=== PATIENT | female | born 1970 | race Caucasian/White ===

== ENCOUNTER 2016-10-26 16:08 | Emergency (ER) | payer MEDICAID ==
--- NOTE | 2016-10-26 17:13 | CPEKG ---
Heart Rate: 98 RR Interval: 612 P-R Interval: 168 QRSD Interval: 82 QT Interval: 352 QTC Interval: 450 P Laurens: 61 QRS Laurens: 47 T Wave Laurens: 28 EKG Severity - NORMAL ECG - EKG Impression: SINUS RHYTHM Electronically Signed By: Lakisha Rosales 26-Oct-2016 22:46:27
[2016-10-26] MEDS ORDERED: ASPIRIN 81 MG CHEWABLE TAB PO ONE (17:34)
--- NOTE | 2016-10-26 17:34 | EDPHY ---
H & P Time Seen by Provider: 10/26/16 16:57 HPI/ROS: CHIEF COMPLAINT: Chest pain HISTORY OF PRESENT ILLNESS: Patient is a 45-year-old female with a history of DVT and PE who presents emergency department with right anterior chest pain. She has mild shortness of breath. No cough. No fevers or chills. It is not worse with movement. It is not positional. She she has no leg pain or swelling. No recent travel. She is not taking hormone replacement therapy. She does not smoke. No nausea or vomiting. REVIEW OF SYSTEMS: My complete review of systems is negative except as mentioned in the HPI. Past Medical/Surgical History: Includes PE and DVT. The patient was a previous drug abuser. Social history: The patient does not smoke Smoking Status: Never smoked Physical Exam: Vitals noted GENERAL: Well-appearing, in no acute distress, alert. HEENT: Eyes normal to inspection, normal pharynx, no signs of dehydration. NECK: No thyromegaly, no lymphadenopathy, supple. RESPIRATORY: Clear to auscultation bilaterally, no rales, rhonchi or wheezing. Chest wall: No chest wall tenderness palpation CVS: Regular rate and rhythm, no rubs, murmurs, or gallops. ABDOMEN: Soft, nontender, nondistended, no organomegaly. BACK: Normal to inspection, no CVA tenderness. SKIN: Normal color, no rash, warm, dry. No pallor. EXTREMITIES: No pedal edema, no calf tenderness, no Homans sign or cords, no joint swelling. NEURO/PSYCH: Alert and oriented x3, normal mood and affect, normal motor sensory exam. Constitutional: Initial Vital Signs Temperature (C) 36.9 C 10/26/16 16:21 Heart Rate 107 H 10/26/16 16:21 Respiratory Rate 16 10/26/16 16:21 Blood Pressure 132/94 H 10/26/16 16:21 O2 Sat (%) 97 10/26/16 16:21 O2 Delivery Mode Room Air Allergies/Adverse Reactions: baclofen [Baclofen] Allergy (Severe, Verified 05/18/16 19:44) Other-Enter Comments ondansetron HCl [From Zofran (as hydrochloride)] Allergy (Severe, Verified 05/18 19:44) Edema of Extremities propofol [From Diprivan] Allergy (Severe, Verified 05/18/16 19:44) hives, itching, couldn't breath fluconazole [From Diflucan] Allergy (Intermediate, Verified 05/18/16 19:44) Other-Enter Comments prochlorperazine edisylate [From Compazine] Allergy (Intermediate, Verified 10/27 19:44) hives, itching prochlorperazine maleate [From Compazine] Allergy (Intermediate, Verified 19:44) hives, itching corn Allergy (Mild, Verified 05/18/16 19:44) headache and migraine Milk Containing Products Allergy (Unknown, Verified 05/18/16 19:44) soy Allergy (Unknown, Verified 05/18/16 19:44) wheat Allergy (Unknown, Verified 05/18/16 19:44) Home Medications: Medication Instructions Recorded Gabapentin [Neurontin 300 MG (*)] 300 mg PO TID PRN 06/13/12 valACYclovir [Valtrex (*)] 1,000 mg PO DAILY 10/30/12 Doxycycline Hyclate [Vibramycin 100 mg PO DAILY 01/30/13 100 MG (*)] chlordiazePOXIDE [Librium 25 mg 25 mg PO QID PRN 01/30/13 (*)] Potassium Chloride [Klor-Con] 20 meq PO DAILY #3 packet 02/21/14 Buprenorphine HCl/Naloxone HCl 1 each SL TID 09/06/14 [Suboxone 8 mg-2 mg SL Film] Erythromycin/Benzoyl Peroxide 1 brenda TP DAILY 02/13/15 [Benzamycin Gel] Multivitamins [Multivitamin (*)] 1 each PO DAILY 02/13/15 Valsartan/Hydrochlorothiazide 1 each PO DAILY 02/13/15 [Diovan Hct 160-25 mg Tablet] Pantoprazole Sodium [Protonix] 40 mg PO DAILY #30 tab 02/14/15 Ondansetron Odt [Zofran Odt 4 mg 4 mg PO Q6 PRN #10 tab 02/15/15 (*)] Promethazine HCl [Phenergan 25mg 25 mg PO Q6 PRN #10 tab 02/15/15 (*)] Levaquin 04/28/16 Medical Decision Making - Diagnostics Imaging Results: Imaging Impressions Chest/Thorax CTA 10/26/16 17:34 Impression: No visible pulmonary embolus. Findings discussed with Lakisha Rosales M.D., on October 26, 2016 at 1940 hours. ED Course/Re-evaluation: In the emergency department I discussed the plan with the patient. I answered all her questions. The patient is a difficult IV stick. She refused having a nurse try at her extremities. She requested we try an EJ. I attempted an ej x1 but was unsuccessful. Patient had a low sodium 132. The patient was noted to have mild anemia with hematocrit 34. CT angio chest: Please refer the dictated report by Dr. Aneudy Mccormack. No PE or acute disease noted. I discussed the results with the patient. I answered all her questions. She was given warnings prior to leaving. She will return with worsening symptoms. Differential Diagnosis: My differential includes but is not limited to PE, pneumonia, bronchitis, ACS, acute NC, dissection, aneurysm, pneumothorax - Data Points Laboratory Results: Laboratory Results 10/26/16 17:40 10/26/16 17:40 10/26/16 10/26/16 10/26/16 17:40 17:40 17:40 WBC 6.22 10^3/uL 10^3/uL (3.80-9.50) RBC 3.55 10^6/uL L 10^6/uL (4.18-5.33) Hgb 12.1 g/dL L g/dL (12.6-16.3) Hct 34.6 % L % (38.0-47.0) MCV 97.5 fL fL (81.5-99.8) MCH 34.1 pg pg (27.9-34.1) MCHC 35.0 g/dL g/dL (32.4-36.7) RDW 15.5 % H % (11.5-15.2) Plt Count 215 10^3/uL 10^3/uL (150-400) MPV 10.3 fL fL (8.7-11.7) Neut % (Auto) 65.5 % % (39.3-74.2) Lymph % (Auto) 23.8 % % (15.0-45.0) Osborne % (Auto) 7.2 % % (4.5-13.0) Eos % (Auto) 2.7 % % (0.6-7.6) Baso % (Auto) 0.6 % % (0.3-1.7) Nucleat RBC Rel Count 0.0 % % (0.0-0.2) Absolute Neuts (auto) 4.07 10^3/uL 10^3/uL (1.70-6.50) Absolute Lymphs (auto) 1.48 10^3/uL 10^3/uL (1.00-3.00) Absolute Monos (auto) 0.45 10^3/uL 10^3/uL (0.30-0.80) Absolute Eos (auto) 0.17 10^3/uL 10^3/uL (0.03-0.40) Absolute Basos (auto) 0.04 10^3/uL 10^3/uL (0.02-0.10) Absolute Nucleated RBC 0.00 10^3/uL 10^3/uL (0-0.01) Immature Gran % 0.2 % % (0.0-1.1) Immature Gran # 0.01 10^3/uL 10^3/uL (0.00-0.10) Sodium 132 mEq/L L mEq/L (134-144) Potassium 3.6 mEq/L mEq/L (3.5-5.2) Chloride 99 mEq/L mEq/L (97-110) Carbon Dioxide 23 mEq/l mEq/l (22-31) Anion Gap 10 mEq/L mEq/L (8-16) BUN 19 mg/dL mg/dL (7-23) Creatinine 0.8 mg/dL mg/dL (0.6-1.0) Estimated GFR > 60 Glucose 81 mg/dL mg/dL (70-100) Calcium 9.4 mg/dL mg/dL (8.5-10.4) Total Bilirubin 0.6 mg/dL mg/dL (0.1-1.4) Conjugated Bilirubin 0.3 mg/dL mg/dL (0.0-0.5) Unconjugated Bilirubin 0.3 mg/dL mg/dL (0.0-1.1) AST 27 IU/L IU/L (14-46) ALT 36 IU/L IU/L (9-52) Alkaline Phosphatase 63 IU/L IU/L (38-126) Troponin I Not Reported Total Protein 7.1 g/dL g/dL (6.3-8.2) Albumin 4.2 g/dL g/dL (3.5-5.0) Lipase 44.0 IU/L IU/L (23-300) Beta HCG, Qual NEGATIVE Medications Given: Discontinued Medications Aspirin (Aspirin) 324 mg PO EDNOW ONE Stop: 10/26/16 17:35 Last Admin: 10/26/16 17:44 Dose: 324 mg Departure - Departure Disposition: Home, Routine, Self-Care Clinical Impression: Hyponatremia Chest pain Qualifiers: Chest pain type: unspecified Qualified Code(s): R07.9 - Chest pain, unspecified Condition: Good Instructions: Chest Pain (ED), Hyponatremia (ED) Additional Instructions: Your CT scan was normal. You need close follow-up your primary care physician. Her sodium is low. This needs to be recheck. Referrals: Kosta Oviedo DO [Primary Care Provider] - 1-2 days without fail
[2016-10-26 18:06] LABS: % IMMATURE GRANULYOCYTES 0.2 % (0.0-1.1); ABSOLUTE IMMATURE GRANULOCYTES 0.01 10^3/uL (0.00-0.10); ADD DIFF? NO; ADD MORPH? NO; ADD SCAN? NO; ATYPICAL LYMPHOCYTE FLAG 10 (0-99); FRAGMENT RBC FLAG 0 (0-99); HEMATOCRIT 34.6 % (38.0-47.0); HEMOGLOBIN 12.1 g/dL (12.6-16.3); LEFT SHIFT FLG 0 (0-99); LIPEMIA HEMOLYSIS FLAG 90 (0-99); MEAN CELL HEMOGLOBIN 34.1 pg (27.9-34.1); MEAN CELL VOLUME 97.5 fL (81.5-99.8); MEAN PLATELET VOLUME 10.3 fL (8.7-11.7); PLATELET CLUMPS FLAG 0 (0-99); PLATELET COUNT 215 10^3/uL (150-400); RED BLOOD CELL COUNT 3.55 10^6/uL (4.18-5.33); RED CELL DISTRIBUTION WIDTH 15.5 % (11.5-15.2)
[2016-10-26] MEDS ORDERED: IOPAMIDOL (ISOVUE 370) 100 ML BTL IV ONE (18:11)
[2016-10-26 18:23] LABS: ALANINE AMINOTRANSFERASE 36 IU/L (9-52); ALBUMIN 4.2 g/dL (3.5-5.0); ALKALINE PHOSPHATASE 63 IU/L (38-126); ANION GAP 10 mEq/L (8-16); ASPARTATE AMINOTRANSFERASE 27 IU/L (14-46); BILIRUBIN,TOTAL 0.6 mg/dL (0.1-1.4); BILIRUBIN-CONJUGATED 0.3 mg/dL (0.0-0.5); BILIRUBIN-UNCONJUGATED 0.3 mg/dL (0.0-1.1); CALCIUM 9.4 mg/dL (8.5-10.4); CARBON DIOXIDE 23 mEq/l (22-31); CHLORIDE 99 mEq/L (97-110); CREATININE 0.8 mg/dL (0.6-1.0); GLOMERULAR FILTRATION RATE > 60; GLUCOSE 81 mg/dL (70-100); POTASSIUM 3.6 mEq/L (3.5-5.2); SODIUM 132 mEq/L (134-144); TOTAL PROTEIN 7.1 g/dL (6.3-8.2)
[2016-10-26 20:19] VITALS: BP 107/80; PULSE 84; RESP 16; TEMP 98.1; O2SAT 96
== END 2016-10-26 20:19 | disposition home or self-care (01) ==
DX: R07.89 Other chest pain (principal); E87.1 Hypo-osmolality and hyponatremia
CPT/HCPCS: Q9967

== ENCOUNTER 2016-12-11 13:43 | Emergency (ER) | payer MEDICAID ==
[2016-12-11 13:50] VITALS: TEMP 98.6
--- NOTE | 2016-12-11 15:22 | CPEKG ---
Heart Rate: 104 RR Interval: 577 P-R Interval: 156 QRSD Interval: 84 QT Interval: 356 QTC Interval: 469 P Ocate: 71 QRS Ocate: 59 T Wave Ocate: 7 EKG Severity - BORDERLINE ECG - EKG Impression: SINUS TACHYCARDIA EKG Impression: PROBABLE LEFT ATRIAL ABNORMALITY EKG Impression: BORDERLINE T ABNORMALITIES, ANTERIOR LEADS EKG Impression: Similar to previous Electronically Signed By: Kosta Nolan 11-Dec-2016 15:39:21
[2016-12-11] MEDS ORDERED: NS 500 ML IV ONE (15:35)
[2016-12-11] MEDS ORDERED: ASPIRIN 81 MG CHEWABLE TAB PO ONE (15:35)
--- NOTE | 2016-12-11 15:38 | EDPHY ---
H & P Stated Complaint: Cramps in extremities, intermittent CP x several wks;saw PCP yesterday Time Seen by Provider: 12/11/16 15:21 HPI/ROS: CHIEF COMPLAINT: Cramping and chest pain HISTORY OF PRESENT ILLNESS: The patient is a 46-year-old female with a history of bipolar disorder, bilateral PE in the setting of control, chronic back pain, alcohol abuse in remission and opiate abuse currently on Suboxone. She complains of 2 weeks of intermittent cramping in both hands and both feet. Today she also developed 10 minutes worth of central chest pain that is now resolved. She denies any feeling of anxiety or history of anxiety. She has flown to [place] 1 month ago. No leg pain or swelling. No shortness of breath. No recent fevers coughs or colds. No abdominal pain. No diaphoresis. She does not have any history of cardiac disease. REVIEW OF SYSTEMS: Constitutional: denies: chills, fever, recent illness, recent injury EENTM: denies: blurred vision, double vision, nose congestion Respiratory: denies: cough, shortness of breath Cardiac: See HPI denies: irregular heart rate, lightheadedness, palpitations Gastrointestinal/Abdominal: denies: abdominal pain, diarrhea, nausea, vomiting, blood streaked stools Genitourinary: denies: dysuria, frequency, hematuria, pain Musculoskeletal: See HPI denies: joint pain, muscle pain Skin: denies: lesions, rash, jaundice, bruising Neurological: denies: headache, numbness, paresthesia, tingling, dizziness, weakness Hematologic/Lymphatic: denies: blood clots, easy bleeding, easy bruising Immunologic/allergic: denies: HIV/AIDS, transplant EXAM: GENERAL: Anxious, well-nourished and in no acute distress. HEAD: Atraumatic, normocephalic. EYES: Pupils equal round and reactive to light, extraocular movements intact, sclera anicteric, conjunctiva are normal. ENT: TMs normal, nares patent, oropharynx clear without exudates. Moist mucous membranes. NECK: Normal range of motion, supple without lymphadenopathy or JVD. LUNGS: Breath sounds clear to auscultation bilaterally and equal. No wheezes rales or rhonchi. HEART: Regular rate and rhythm without murmurs, rubs or gallops. ABDOMEN: Soft, nontender, normoactive bowel sounds. No guarding, no rebound. No masses appreciated. BACK: No CVA tenderness, no spinal tenderness, step-offs or deformities EXTREMITIES: Normal range of motion, no pitting or edema. No clubbing or cyanosis. NEUROLOGICAL: Cranial nerves II through XII grossly intact. Normal speech, normal gait. 5/5 strength, normal movement in all extremities, normal sensation PSYCH: Normal mood, normal affect. SKIN: Warm, dry, normal turgor, no visible rashes or lesions. Source: Patient Exam Limitations: No limitations - Personal History Current Tetanus Diphtheria and Acellular Pertussis (TDAP): Yes Tetanus Vaccine Date: 11/2008 - Medical/Surgical History Hx Asthma: No Hx Chronic Respiratory Disease: No Hx Diabetes: No Hx Cardiac Disease: Yes Hx Renal Disease: No Hx Cirrhosis: No Hx Alcoholism: Yes Hx HIV/AIDS: No Hx Splenectomy or Spleen Trauma: No Other PMH: cholecystectomy, multiple back surgeries, P.E., knee repairs, DVT, EtOH abuse, endometreosis, tonsilectomy, HTN, kidney infections, hypokalemia, hyponatremia, STD. CHI - Family History Significant Family History: No pertinent family hx - Social History Smoking Status: Never smoked Alcohol Use: Sober Drug Use: None Constitutional: Initial Vital Signs Temperature (C) 37 C 12/11/16 13:45 Heart Rate 101 H 12/11/16 13:45 Respiratory Rate 20 12/11/16 13:45 Blood Pressure 138/98 H 12/11/16 13:45 O2 Sat (%) 97 12/11/16 13:45 O2 Delivery Mode Room Air Allergies/Adverse Reactions: baclofen [Baclofen] Allergy (Severe, Verified 12/11/16 13:50) Other-Enter Comments propofol [From Diprivan] Allergy (Severe, Verified 12/11/16 13:50) hives, itching, couldn't breath fluconazole [From Diflucan] Allergy (Intermediate, Verified 12/11/16 13:50) Other-Enter Comments ondansetron HCl [From Zofran (as hydrochloride)] Allergy (Intermediate, Verified 12/11/16 13:52) Hives prochlorperazine edisylate [From Compazine] Allergy (Intermediate, Verified 13:50) hives, itching prochlorperazine maleate [From Compazine] Allergy (Intermediate, Verified 13:50) hives, itching corn Allergy (Mild, Verified 12/11/16 13:50) headache and migraine Milk Containing Products Allergy (Unknown, Verified 12/11/16 13:50) soy Allergy (Unknown, Verified 12/11/16 13:50) wheat Allergy (Unknown, Verified 12/11/16 13:50) Home Medications: Medication Instructions Recorded Gabapentin [Neurontin 300 MG (*)] 300 mg PO TID PRN 06/13/12 valACYclovir [Valtrex (*)] 1,000 mg PO DAILY 10/30/12 Doxycycline Hyclate [Vibramycin 100 mg PO DAILY 01/30/13 100 MG (*)] chlordiazePOXIDE [Librium 25 mg 25 mg PO QID PRN 01/30/13 (*)] Potassium Chloride [Klor-Con] 20 meq PO DAILY #3 packet 02/21/14 Buprenorphine HCl/Naloxone HCl 1 each SL TID 09/06/14 [Suboxone 8 mg-2 mg SL Film] Erythromycin/Benzoyl Peroxide 1 brenda TP DAILY 02/13/15 [Benzamycin Gel] Multivitamins [Multivitamin (*)] 1 each PO DAILY 02/13/15 Valsartan/Hydrochlorothiazide 1 each PO DAILY 02/13/15 [Diovan Hct 160-25 mg Tablet] Pantoprazole Sodium [Protonix] 40 mg PO DAILY #30 tab 02/14/15 Promethazine HCl [Phenergan 25mg 25 mg PO Q6 PRN #10 tab 02/15/15 (*)] Medical Decision Making - Diagnostics EKG Interpretation: An EKG obtained and was read and documented in trace view. Please see trace view for full reading and report. Sinus tachycardia, no acute ischemic changes , slight T-wave flattening in lead 3 only. Imaging Results: Imaging Impressions Chest X-Ray 12/11/16 15:35 Impression: No acute findings in the chest. Procedures: IV placement. I placed an IV with ultrasound guidance in the patient's right IJ with an 18 gauge long needle. This was done because nursing staff could not obtain a peripheral IV. Patient tolerated the procedure well. Was done of her consent. ED Course/Re-evaluation: 5:40 p.m. we discussed the test and imaging results. The patient is relieved. She is currently asymptomatic. She declines further workup or testing. She declines observation. She will follow up with her primary DrJennifer Oviedo the next couple of days. We discussed indications for returning. She is happy with this plan. Differential Diagnosis: Partial list of the Differential diagnosis considered include but were not limited to; electrolyte abnormality, anxiety and although unlikely based on the history and physical exam, I also considered acute coronary disease, PE, pneumothorax. I discussed these differential diagnoses and the plan with the patient as well as the usual and expected course. The patient understands that the diagnosis is provisional and that in medicine we are not always correct and that further workup is often warranted. Usual and customary warnings were given. All of the patient's questions were answered. The patient was instructed to return to the emergency department should the symptoms at all worsen or return, otherwise to followup with the physician as we discussed. - Data Points Laboratory Results: Laboratory Results 12/11/16 16:30 12/11/16 16:30 12/11/16 12/11/16 12/11/16 16:30 16:30 16:30 WBC 5.32 10^3/uL 10^3/uL (3.80-9.50) RBC 3.62 10^6/uL L 10^6/uL (4.18-5.33) Hgb 12.7 g/dL g/dL (12.6-16.3) Hct 36.6 % L % (38.0-47.0) MCV 101.1 fL H fL (81.5-99.8) MCH 35.1 pg H pg (27.9-34.1) MCHC 34.7 g/dL g/dL (32.4-36.7) RDW 14.4 % % (11.5-15.2) Plt Count 216 10^3/uL 10^3/uL (150-400) MPV 10.3 fL fL (8.7-11.7) Neut % (Auto) 58.3 % % (39.3-74.2) Lymph % (Auto) 31.0 % % (15.0-45.0) Eaton % (Auto) 8.8 % % (4.5-13.0) Eos % (Auto) 0.9 % % (0.6-7.6) Baso % (Auto) 0.6 % % (0.3-1.7) Nucleat RBC Rel Count 0.0 % % (0.0-0.2) Absolute Neuts (auto) 3.10 10^3/uL 10^3/uL (1.70-6.50) Absolute Lymphs (auto) 1.65 10^3/uL 10^3/uL (1.00-3.00) Absolute Monos (auto) 0.47 10^3/uL 10^3/uL (0.30-0.80) Absolute Eos (auto) 0.05 10^3/uL 10^3/uL (0.03-0.40) Absolute Basos (auto) 0.03 10^3/uL 10^3/uL (0.02-0.10) Absolute Nucleated RBC 0.00 10^3/uL 10^3/uL (0-0.01) Immature Gran % 0.4 % % (0.0-1.1) Immature Gran # 0.02 10^3/uL 10^3/uL (0.00-0.10) PT 13.3 SEC SEC (12.0-15.0) INR 1.02 (0.83-1.16) APTT 23.5 SEC SEC (23.0-38.0) D-Dimer < 0.27 ug/mLFEU ug/mLFEU (0.00-0.50) Sodium 135 mEq/L mEq/L (134-144) Potassium 3.5 mEq/L mEq/L (3.5-5.2) Chloride 100 mEq/L mEq/L (97-110) Carbon Dioxide 23 mEq/l mEq/l (22-31) Anion Gap 12 mEq/L mEq/L (8-16) BUN 18 mg/dL mg/dL (7-23) Creatinine 0.7 mg/dL mg/dL (0.6-1.0) Estimated GFR > 60 Glucose 77 mg/dL mg/dL (70-100) Calcium 9.6 mg/dL mg/dL (8.5-10.4) Magnesium 2.0 mg/dL mg/dL (1.6-2.3) Troponin I < 0.012 ng/mL ng/mL (0-0.034) TSH 0.515 uIU/mL uIU/mL (0.465-4.680) Free T4 1.39 ng/dL ng/dL (0.59-2.19) Medications Given: Discontinued Medications Aspirin (Aspirin) 324 mg PO EDNOW ONE Stop: 12/11/16 15:36 Last Admin: 12/11/16 16:02 Dose: 324 mg Sodium Chloride (Ns) 500 mls @ 1,000 mls/hr IV ONCE ONE PRN Reason: Protocol Stop: 12/11/16 16:04 Last Admin: 12/11/16 16:48 Dose: 500 mls Departure - Departure Disposition: Home, Routine, Self-Care Clinical Impression: Cramping of hands Condition: Fair Instructions: Muscle Cramp (ED) Referrals: Kosta Oviedo DO [Primary Care Provider] - As per Instructions
[2016-12-11 16:14] VITALS: RESP 16
[2016-12-11 16:55] LABS: % IMMATURE GRANULYOCYTES 0.4 % (0.0-1.1); ABSOLUTE IMMATURE GRANULOCYTES 0.02 10^3/uL (0.00-0.10); ADD DIFF? NO; ADD MORPH? NO; ADD SCAN? NO; ATYPICAL LYMPHOCYTE FLAG 10 (0-99); FRAGMENT RBC FLAG 0 (0-99); HEMATOCRIT 36.6 % (38.0-47.0); HEMOGLOBIN 12.7 g/dL (12.6-16.3); LEFT SHIFT FLG 0 (0-99); LIPEMIA HEMOLYSIS FLAG 90 (0-99); MEAN CELL HEMOGLOBIN 35.1 pg (27.9-34.1); MEAN CELL HEMOGLOBIN CONCENTR. 34.7 g/dL (32.4-36.7); MEAN CELL VOLUME 101.1 fL (81.5-99.8); MEAN PLATELET VOLUME 10.3 fL (8.7-11.7); PLATELET CLUMPS FLAG 20 (0-99); PLATELET COUNT 216 10^3/uL (150-400); RED BLOOD CELL COUNT 3.62 10^6/uL (4.18-5.33); RED CELL DISTRIBUTION WIDTH 14.4 % (11.5-15.2)
[2016-12-11 16:59] LABS: ANION GAP 12 mEq/L (8-16); CALCIUM 9.6 mg/dL (8.5-10.4); CARBON DIOXIDE 23 mEq/l (22-31); CHLORIDE 100 mEq/L (97-110); CREATININE 0.7 mg/dL (0.6-1.0); GLOMERULAR FILTRATION RATE > 60; GLUCOSE 77 mg/dL (70-100); POTASSIUM 3.5 mEq/L (3.5-5.2); SODIUM 135 mEq/L (134-144)
[2016-12-11 17:05] LABS: INR 1.02 (0.83-1.16); PROTIME(PATIENT) 13.3 SEC (12.0-15.0)
[2016-12-11 17:06] LABS: APTT 23.5 SEC (23.0-38.0)
[2016-12-11 17:11] LABS: TROPONIN I < 0.012 ng/mL (0-0.034)
[2016-12-11 18:54] VITALS: BP 118/81; PULSE 92; O2SAT 95
== END 2016-12-11 18:52 | disposition home or self-care (01) ==
DX: R25.2 Cramp and spasm (principal); E86.9 Volume depletion, unspecified; I10 Essential (primary) hypertension

== ENCOUNTER → 2016-12-28 | Outpatient (CLI) | payer MEDICAID ==
[~2016-12-28] MED LIST: IOPAMIDOL (ISOVUE 370) 100 ML BTL IV ONE
== END ==
LOC: FIMAGING 14:22
PROVIDERS: ATTEND Family Medicine
DX: R07.9 Chest pain, unspecified (principal); Z79.01 Long term (current) use of anticoagulants
CPT/HCPCS: Q9967

== ENCOUNTER 2017-03-24 15:54 | Emergency (ER) | payer MEDICAID ==
--- NOTE | 2017-03-24 18:13 | EDPHY ---
H & P Time Seen by Provider: 03/24/17 17:14 HPI/ROS: Chief complaint. Water retention HPI. 46-year-old female presents with 25 lb weight gain over 1/2 weeks. She complains of generalized swelling. She also has a neurogenic bladder and she has had difficulty urinating over the are explored days. Previous problems of bladder emptying. She has had previous Taylor catheter. She is using a Lasix pills but again could not urinate. No fever, chest discomfort, trouble breathing. Bloating abdomen and sense of full bladder. ROS Constitutional. no fever/chills, no weakness Eyes. no problems with vision ENT. no sore throat, no nasal drainage Cardiovascular. no chest pain Respiratory. no shortness of breath, no cough Abdominal. no abdominal pain, no nausea/vomiting, no diarrhea . Unable to urinate MS. no calf pain/swelling, no neck/back pain, no joint pain Skin. no rash Lymph. no swollen glands Neuro. no headache, no dizziness, no difficulty walking or with speech Past Medical/Surgical History: Past medical history significant for PE, DVT, alcoholism, endometriosis, tonsillectomy, hypertension, pyelonephritis, hypokalemia, hyponatremia, closed- head injury, neurogenic bladder Social History: , nonsmoker, no alcohol Smoking Status: Never smoked Physical Exam: General Appearance: Alert well-developed female mild distress vital signs are stable though initial heart rate 109 Eyes: Pupils equal and round no pallor or injection. ENT, Mouth: Mucous membranes are moist. Respiratory: There are no retractions, lungs are clear to auscultation. Cardiovascular: Regular rate and rhythm. Gastrointestinal: Abdomen is soft with palpable bladder that is mildly tender. No other masses. Normal bowel sounds. Neurological: Awake and alert, sensory and motor exams grossly normal. Skin: Warm and dry, no rashes. Musculoskeletal: Neck is supple nontender. Extremities symmetrical, full range of motion. No significant edema Psychiatric: Patient is oriented X 3, there is no agitation. Constitutional: Initial Vital Signs Temperature (C) 37.2 C 03/24/17 16:00 Heart Rate 109 H 03/24/17 16:00 Respiratory Rate 18 03/24/17 16:00 Blood Pressure 127/84 H 03/24/17 16:00 O2 Sat (%) 97 03/24/17 16:00 O2 Delivery Mode Room Air Allergies/Adverse Reactions: baclofen [Baclofen] Allergy (Severe, Verified 03/24/17 16:08) Other-Enter Comments propofol [From Diprivan] Allergy (Severe, Verified 03/24/17 16:08) hives, itching, couldn't breath fluconazole [From Diflucan] Allergy (Intermediate, Verified 03/24/17 16:08) Other-Enter Comments ondansetron HCl [From Zofran (as hydrochloride)] Allergy (Intermediate, Verified 03/24/17 16:08) Hives prochlorperazine edisylate [From Compazine] Allergy (Intermediate, Verified 04/30 16:08) hives, itching prochlorperazine maleate [From Compazine] Allergy (Intermediate, Verified 16:08) hives, itching corn Allergy (Mild, Verified 03/24/17 16:08) headache and migraine Milk Containing Products Allergy (Unknown, Verified 03/24/17 16:08) soy Allergy (Unknown, Verified 03/24/17 16:08) wheat Allergy (Unknown, Verified 03/24/17 16:08) Home Medications: Medication Instructions Recorded Gabapentin [Neurontin 300 MG (*)] 300 mg PO TID PRN 06/13/12 valACYclovir [Valtrex (*)] 1,000 mg PO DAILY 10/30/12 Doxycycline Hyclate [Vibramycin 100 mg PO DAILY 01/30/13 100 MG (*)] chlordiazePOXIDE [Librium 25 mg 25 mg PO QID PRN 01/30/13 (*)] Potassium Chloride [Klor-Con] 20 meq PO DAILY #3 packet 02/21/14 Buprenorphine HCl/Naloxone HCl 1 each SL TID 09/06/14 [Suboxone 8 mg-2 mg SL Film] Erythromycin/Benzoyl Peroxide 1 brenda TP DAILY 02/13/15 [Benzamycin Gel] Multivitamins [Multivitamin (*)] 1 each PO DAILY 02/13/15 Valsartan/Hydrochlorothiazide 1 each PO DAILY 02/13/15 [Diovan Hct 160-25 mg Tablet] Pantoprazole Sodium [Protonix] 40 mg PO DAILY #30 tab 02/14/15 Promethazine HCl [Phenergan 25mg 25 mg PO Q6 PRN #10 tab 02/15/15 (*)] Cephalexin [Keflex (*)] 500 mg PO BID #8 cap 03/24/17 Medical Decision Making Procedures: Multiple IV attempts. Bladder scan shows 700 mL in the bladder following Attempts at urination. Taylor catheter is placed ED Course/Re-evaluation: Re-evaluation 9:00 p.m.. Taylor catheters drained approximately 1100 cc. Patient is feeling much better. She and I discussed laboratory evaluation, treatment plan including criteria for return importance of follow-up and further evaluation. She expresses understanding and agreement Differential Diagnosis: Patient has a neurogenic bladder and history of acute urinary retention. Nothing to suggest cauda a.m. as she does not have back pain and normal neurologic exam. This could represent right-sided congestive heart failure with the weight gain and presumably fluid retention. Her BNP is fairly normal however. The patient is encouraged to use Lasix as directed and will follow up with her regular physician to have the catheter removedresses understanding and agreement - Data Points Laboratory Results: Laboratory Results 03/24/17 20:00 03/24/17 20:00 03/24/17 03/24/17 20:00 20:00 WBC 6.10 10^3/uL 10^3/uL (3.80-9.50) RBC 3.03 10^6/uL L 10^6/uL (4.18-5.33) Hgb 10.7 g/dL L g/dL (12.6-16.3) Hct 31.2 % L % (38.0-47.0) MCV 103.0 fL H fL (81.5-99.8) MCH 35.3 pg H pg (27.9-34.1) MCHC 34.3 g/dL g/dL (32.4-36.7) RDW 13.9 % % (11.5-15.2) Plt Count 275 10^3/uL 10^3/uL (150-400) MPV 9.9 fL fL (8.7-11.7) Neut % (Auto) 56.2 % % (39.3-74.2) Lymph % (Auto) 31.5 % % (15.0-45.0) Turner % (Auto) 7.5 % % (4.5-13.0) Eos % (Auto) 4.1 % % (0.6-7.6) Baso % (Auto) 0.5 % % (0.3-1.7) Nucleat RBC Rel Count 0.0 % % (0.0-0.2) Absolute Neuts (auto) 3.43 10^3/uL 10^3/uL (1.70-6.50) Absolute Lymphs (auto) 1.92 10^3/uL 10^3/uL (1.00-3.00) Absolute Monos (auto) 0.46 10^3/uL 10^3/uL (0.30-0.80) Absolute Eos (auto) 0.25 10^3/uL 10^3/uL (0.03-0.40) Absolute Basos (auto) 0.03 10^3/uL 10^3/uL (0.02-0.10) Absolute Nucleated RBC 0.00 10^3/uL 10^3/uL (0-0.01) Immature Gran % 0.2 % % (0.0-1.1) Immature Gran # 0.01 10^3/uL 10^3/uL (0.00-0.10) Sodium 136 mEq/L mEq/L (134-144) Potassium 4.1 mEq/L mEq/L (3.5-5.2) Chloride 102 mEq/L mEq/L (97-110) Carbon Dioxide 26 mEq/l mEq/l (22-31) Anion Gap 8 mEq/L mEq/L (8-16) BUN 12 mg/dL mg/dL (7-23) Creatinine 0.9 mg/dL mg/dL (0.6-1.0) Estimated GFR > 60 Glucose 78 mg/dL mg/dL (70-100) Calcium 9.2 mg/dL mg/dL (8.5-10.4) NT-Pro-B Natriuret Pep 207 pg/mL H pg/mL (0-125) Departure - Departure Disposition: Home, Routine, Self-Care Clinical Impression: Acute urinary retention Condition: Good Instructions: Acute Urinary Retention in Women (ED), Taylor Catheter Placement and Care (ED) Additional Instructions: The catheter in 3 days and be recheck by Dr. Oviedo to have catheter out. Take Lasix as prescribed. Return for worsening symptoms. Cephalexin twice daily while catheter is in. Return for fever or worsening symptoms Referrals: Kosta Oviedo DO [Primary Care Provider] - 2-3 days, call for appt. Prescriptions: Cephalexin [Keflex (*)] 500 mg PO BID #8 cap
[2017-03-24 20:13] LABS: % IMMATURE GRANULYOCYTES 0.2 % (0.0-1.1); ABSOLUTE IMMATURE GRANULOCYTES 0.01 10^3/uL (0.00-0.10); ADD DIFF? NO; ADD MORPH? NO; ADD SCAN? NO; ATYPICAL LYMPHOCYTE FLAG 10 (0-99); FRAGMENT RBC FLAG 0 (0-99); HEMATOCRIT 31.2 % (38.0-47.0); HEMOGLOBIN 10.7 g/dL (12.6-16.3); LEFT SHIFT FLG 0 (0-99); LIPEMIA HEMOLYSIS FLAG 90 (0-99); MEAN CELL HEMOGLOBIN 35.3 pg (27.9-34.1); MEAN CELL HEMOGLOBIN CONCENTR. 34.3 g/dL (32.4-36.7); MEAN PLATELET VOLUME 9.9 fL (8.7-11.7); PLATELET CLUMPS FLAG 20 (0-99); PLATELET COUNT 275 10^3/uL (150-400); RED BLOOD CELL COUNT 3.03 10^6/uL (4.18-5.33); RED CELL DISTRIBUTION WIDTH 13.9 % (11.5-15.2)
[2017-03-24 20:15] LABS: ANION GAP 8 mEq/L (8-16); CALCIUM 9.2 mg/dL (8.5-10.4); CARBON DIOXIDE 26 mEq/l (22-31); CHLORIDE 102 mEq/L (97-110); CREATININE 0.9 mg/dL (0.6-1.0); GLOMERULAR FILTRATION RATE > 60; GLUCOSE 78 mg/dL (70-100); POTASSIUM 4.1 mEq/L (3.5-5.2); SODIUM 136 mEq/L (134-144)
[2017-03-24 20:23] VITALS: BP 121/89; PULSE 89; RESP 16; TEMP 98.8; O2SAT 95
[2017-03-24] MEDS ORDERED: CEPHALEXIN 500MG PREPACK#4 BTL TAKEHOME ONE (21:03)
== END 2017-03-24 21:22 | disposition home or self-care (01) ==
PROC: 0T9B70Z Drainage of Bladder with Drainage Device, Via Natural or Artificial Opening (ICD-10-PCS; principal; 2017-03-24)
DX: R33.9 Retention of urine, unspecified (principal); I10 Essential (primary) hypertension

== ENCOUNTER → 2017-03-25 | Emergency (ER) | payer MEDICAID | END | disposition home or self-care (01) | DX: Z46.6 Encounter for fitting and adjustment of urinary device (principal) ==

== ENCOUNTER → 2017-03-26 | Outpatient (CLI) | payer MEDICAID | LOC: FIMAGING 18:28 | PROVIDERS: ATTEND Physical Medicine & Rehabilitation | DX: M51.36 Other intervertebral disc degeneration, lumbar region (principal); M51.37 Other intervertebral disc degeneration, lumbosacral region; M46.96 Unspecified inflammatory spondylopathy, lumbar region; Z98.890 Other specified postprocedural states ==

== ENCOUNTER 2017-04-30 17:25 | Emergency (ER) | payer MEDICAID ==
[2017-04-30 17:36] VITALS: RESP 16
--- NOTE | 2017-04-30 17:47 | EDPHY ---
H & P Stated Complaint: LEFT LEG PAIN BEHIND CALF. HX-DVT'S Source: Patient Exam Limitations: No limitations - Personal History LMP (Females 10-55): Post Menopausal Current Tetanus/Diphtheria Vaccine: Yes Current Tetanus Diphtheria and Acellular Pertussis (TDAP): Yes Tetanus Vaccine Date: 11/2008 - Medical/Surgical History Hx Asthma: No Hx Chronic Respiratory Disease: No Hx Diabetes: No Hx Cardiac Disease: Yes Hx Renal Disease: No Hx Cirrhosis: No Hx Alcoholism: Yes Hx HIV/AIDS: No Hx Splenectomy or Spleen Trauma: No Other PMH: cholecystectomy, multiple back surgeries, P.E., knee repairs, DVT, EtOH abuse, endometreosis, tonsilectomy, HTN, kidney infections, hypokalemia, hyponatremia, STD. CHI, neurogenic bladder - Social History Smoking Status: Never smoked Time Seen by Provider: 04/30/17 17:46 HPI/ROS: HPI: This is a 46-year-old female who presents with Chief Complaint: LEFT LEG PAIN BEHIND CALF. HX-DVT'S Location: Left calf Quality: Pain Duration: Since last night Signs and Symptoms: No bleeding, no radiation, no numbness, no weakness, no tingling, no incontinence, no decreased range of motion, no swelling, no pain Timing: Gradual onset, intermittent Severity: Moderate Context: Patient reports that last night she woke up in the middle night with left calf pain that has been intermittent in nature occurring several times today. She has also noticed some left ankle swelling. She has a history of bilateral pulmonary embolism secondary to control use in 2010 that she was on Xarelto for 6 months. Then in 2011 she was diagnosed with right lower extremity DVT also on 6 months of anticoagulation. She reports that she is a nonsmoker, no longer taking control pills, and has not recently taken any long distance trips, no injury, no trauma. She does take Lasix as needed with potassium supplementation. She reports that she has had the hypercoagulability workup outpatient within the last year and was negative. She denies any shortness of breath, chest pain, palpitations. She is ambulatory without deficits. Modifying Factors: None Comment: ROS: see HPI Constitutional: No fever, no chills, no weight loss Eyes: No blurred vision Respiratory: No shortness of breath, no cough Cardiovascular: No chest pain Gastrointestinal: No nausea, no vomiting no diarrhea Genitourinary: No dysuria Extremities: No myalgias Neurologic: No weakness, no numbness Skin: No rashes Hematologic: No bruising, no bleeding MEDICAL/SURGICAL/SOCIAL HISTORY: Medical/Surgical history: cholecystectomy, multiple back surgeries, P.E., knee repairs, DVT, EtOH abuse, endometriosis, tonsillectomy, HTN, kidney infections, hypokalemia, hyponatremia, STD CHI, neurogenic bladder Social history: Has a son CONSTITUTIONAL: awake and alert, no obvious distress HEENT: Atraumatic and normocephalic, PERRL, EOMI. Tympanic membranes clear. Oropharynx clear, no exudate and moist pink mucosa. Airway patent. No lymphadenopathy. No meningismus. Cardiovascular: Normal S1/S2, regular rate, regular rhythm, without murmur rub or gallop. PULMONARY/CHEST: Symmetrical and nontender. Clear to auscultation bilaterally. Good air movement. No accessory muscle usage. ABDOMEN: Soft, nondistended, nontender, no rebound, no guarding, no peritoneal signs, no masses or organomegaly. No CVAT. EXTREMITIES: 2/2 DP and PT pulses, strength 5/5, left calf shows mild tenderness with palpation. No varicose veins. No palpable cords. LEFT KNEE: no effusion, no medial and lateral joint line tenderness, full extension to 180, flexion to 120, no pain with varus and valgus exam. no deformities, no clubbing, no cyanosis or edema. NEUROLOGICAL: no focal neuro deficits. GCS 15. SKIN: Warm and dry, no erythema. no rash. Good capillary refill. (Meagan Bhakta) Constitutional: Initial Vital Signs Temperature (C) 37.8 C 04/30/17 17:31 Heart Rate 98 04/30/17 17:31 Respiratory Rate 16 04/30/17 17:31 Blood Pressure 121/68 H 04/30/17 17:31 O2 Sat (%) 99 04/30/17 17:31 O2 Delivery Mode Room Air Allergies/Adverse Reactions: baclofen [Baclofen] Allergy (Severe, Verified 04/30/17 17:30) Other-Enter Comments propofol [From Diprivan] Allergy (Severe, Verified 04/30/17 17:30) hives, itching, couldn't breath fluconazole [From Diflucan] Allergy (Intermediate, Verified 04/30/17 17:30) Other-Enter Comments ondansetron HCl [From Zofran (as hydrochloride)] Allergy (Intermediate, Verified 04/30/17 17:30) Hives prochlorperazine edisylate [From Compazine] Allergy (Intermediate, Verified 17:30) hives, itching prochlorperazine maleate [From Compazine] Allergy (Intermediate, Verified 17:30) hives, itching corn Allergy (Mild, Verified 04/30/17 17:30) headache and migraine Milk Containing Products Allergy (Unknown, Verified 04/30/17 17:30) soy Allergy (Unknown, Verified 04/30/17 17:30) wheat Allergy (Unknown, Verified 04/30/17 17:30) Home Medications: Medication Instructions Recorded Gabapentin [Neurontin 300 MG (*)] 300 mg PO TID PRN 06/13/12 valACYclovir [Valtrex (*)] 1,000 mg PO DAILY 10/30/12 Doxycycline Hyclate [Vibramycin 100 mg PO DAILY 01/30/13 100 MG (*)] chlordiazePOXIDE [Librium 25 mg 25 mg PO QID PRN 01/30/13 (*)] Potassium Chloride [Klor-Con] 20 meq PO DAILY #3 packet 02/21/14 Buprenorphine HCl/Naloxone HCl 1 each SL TID 09/06/14 [Suboxone 8 mg-2 mg SL Film] Erythromycin/Benzoyl Peroxide 1 brenda TP DAILY 02/13/15 [Benzamycin Gel] Multivitamins [Multivitamin (*)] 1 each PO DAILY 02/13/15 Valsartan/Hydrochlorothiazide 1 each PO DAILY 02/13/15 [Diovan Hct 160-25 mg Tablet] Pantoprazole Sodium [Protonix] 40 mg PO DAILY #30 tab 02/14/15 Promethazine HCl [Phenergan 25mg 25 mg PO Q6 PRN #10 tab 02/15/15 (*)] Cephalexin [Keflex (*)] 500 mg PO BID #8 cap 03/24/17 Medical Decision Making ED Course/Re-evaluation: Left lower extremity ultrasound, labs ordered Vital signs reviewed upon arrival and no tachycardia and no hypoxia. No signs of neurovascular compromise/tenting of skin/compartment syndrome/ extremities and joints examined above and below area of concern and are neurovascularly intact. 1849: Called by radiologist who advised that left lower extremity ultrasound shows no deep venous thrombosis or Elizabeth cyst. Labs reviewed and grossly unremarkable. Reassurance provided to patient. (Meagan Bhakta) The patient was evaluated and managed by the physician contract assistant. I have reviewed this chart and I agree with the findings and plan of care as documented , as indicated by my signature. I am the secondary supervising physician. ( Vianney Sanchez) Differential Diagnosis: Leg swelling including but not limited to hypoalbuminemia, congestive heart failure, cor pulmonale, chronic venous stasis and DVT. (Meagan Bhakta) - Data Points Laboratory Results: Laboratory Results 04/30/17 20:00 04/30/17 20:00 Departure - Departure Disposition: Home, Routine, Self-Care Clinical Impression: Cramps of left lower extremity Condition: Good Instructions: Leg Cramps (ED) Referrals: Kosta Oviedo, [Primary Care Provider] - 3-4 days, if not improved
[2017-04-30 20:09] LABS: % IMMATURE GRANULYOCYTES 0.2 % (0.0-1.1); ABSOLUTE IMMATURE GRANULOCYTES 0.01 10^3/uL (0.00-0.10); ADD DIFF? NO; ADD MORPH? NO; ADD SCAN? NO; ATYPICAL LYMPHOCYTE FLAG 10 (0-99); FRAGMENT RBC FLAG 0 (0-99); HEMATOCRIT 32.7 % (38.0-47.0); HEMOGLOBIN 11.6 g/dL (12.6-16.3); LEFT SHIFT FLG 0 (0-99); LIPEMIA HEMOLYSIS FLAG 90 (0-99); MEAN CELL HEMOGLOBIN 34.6 pg (27.9-34.1); MEAN CELL HEMOGLOBIN CONCENTR. 35.5 g/dL (32.4-36.7); MEAN CELL VOLUME 97.6 fL (81.5-99.8); MEAN PLATELET VOLUME 10.1 fL (8.7-11.7); PLATELET CLUMPS FLAG 0 (0-99); PLATELET COUNT 254 10^3/uL (150-400); RED BLOOD CELL COUNT 3.35 10^6/uL (4.18-5.33); RED CELL DISTRIBUTION WIDTH 13.4 % (11.5-15.2)
[2017-04-30 20:24] LABS: ANION GAP 10 mEq/L (8-16); CALCIUM 9.4 mg/dL (8.5-10.4); CARBON DIOXIDE 24 mEq/l (22-31); CHLORIDE 102 mEq/L (97-110); CREATININE 1.1 mg/dL (0.6-1.0); GLOMERULAR FILTRATION RATE 53; GLUCOSE 82 mg/dL (70-100); MAGNESIUM 2.2 mg/dL (1.6-2.3); POTASSIUM 3.9 mEq/L (3.5-5.2); SODIUM 136 mEq/L (134-144)
[2017-04-30 20:56] VITALS: BP 139/96; PULSE 115; TEMP 98.8; O2SAT 97
== END 2017-04-30 20:54 | disposition home or self-care (01) ==
DX: R25.2 Cramp and spasm (principal); I10 Essential (primary) hypertension

== ENCOUNTER 2017-05-03 10:56 | Observation (INO) | payer MEDICAID ==
--- NOTE | 2017-05-03 11:49 | EDPHY ---
H & P Smoking Status: Never smoked Time Seen by Provider: 05/03/17 11:26 HPI/ROS: CHIEF COMPLAINT: "I am retaining fluid ". HISTORY OF PRESENT ILLNESS: 46-year-old female presents to the emergency department by private vehicle stating that she is "retaining fluid". The patient states that she has had this problem intermittently. She was seen in the emergency department just a few days ago with similar symptoms. She also has some her symptoms 1 month ago and was found to have urinary retention. The patient has a history of a neurogenic bladder. She has had multiple kidney infections. She had an elevated creatinine 3 days ago of 1.1 and is concerned that now with her bilateral flank pain and fluid retention that "my kidneys are shutting down ". Patient has a history of renal failure in 2009. She did not require dialysis. She is able to urinate however sometimes she has to do self- catheterizations. No fevers or chills. She feels like she is having difficulty breathing. She denies chest pain. She specifically denies pleuritic chest pain. She has had a pulmonary embolism in the past which she thinks was because she was on oral control pills. She does not feel that this is similar to her previous pulmonary embolism. She has no calf pain or swelling now. When she was in the emergency department 3 days ago they did an ultrasound of her lower extremity and revealed no evidence of DVT. REVIEW OF SYSTEMS: Constitutional: No fever, no chills. Eyes: No double or blurry vision. ENT: No sore throat. Respiratory: Short of breath. No cough. Cardiac: No chest pain. Gastrointestinal: No abdominal pain, vomiting or diarrhea. Genitourinary: No dysuria. Musculoskeletal: No neck or back pain. Skin: No rashes. Neurological: No headache. (ConstanceLaura M) Past Medical/Surgical History: PE, DVT, alcoholism, endometriosis, tonsillectomy, hypertension, pyelonephritis , hypokalemia, hyponatremia, traumatic brain injury, neurogenic bladder (HoaLaura moeller) Social History: and lives in [place] (ConstanceLaura M) Physical Exam: General Appearance: Alert, no distress. 37.6. 131/101, 99-100% on room air. No respiratory distress. She is speaking in full sentences. Eyes: Pupils equal and round. Extraocular motions are all intact. ENT: Mouth: Mucous membranes moist. Respiratory: No wheezing, rhonchi, or rales, lungs are clear to auscultation. Cardiovascular: Regular rate and rhythm. Gastrointestinal: Abdomen is soft. Nontender to palpate. No masses, rebound or guarding noted. Bilateral CVA tenderness noted. Neurological: Alert and oriented x 3, cranial nerves II through XII grossly intact Skin: Warm and dry, no rashes. Musculoskeletal: Nontender to palpate along the cervical, thoracic or lumbar spine. Neck is supple. Extremities: Full range of motion and no peripheral edema. Psychiatric: Patient is oriented X 3, there is no agitation. (Laura Nolasco) Constitutional: Initial Vital Signs Temperature (C) 37.6 C 05/03/17 11:05 Heart Rate 101 H 05/03/17 11:05 Respiratory Rate 18 05/03/17 11:05 Blood Pressure 131/101 H 05/03/17 11:05 O2 Sat (%) 99 05/03/17 11:05 O2 Delivery Mode Room Air Allergies/Adverse Reactions: baclofen [Baclofen] Allergy (Severe, Verified 04/30/17 17:30) Other-Enter Comments propofol [From Diprivan] Allergy (Severe, Verified 04/30/17 17:30) hives, itching, couldn't breath fluconazole [From Diflucan] Allergy (Intermediate, Verified 04/30/17 17:30) Other-Enter Comments ondansetron HCl [From Zofran (as hydrochloride)] Allergy (Intermediate, Verified 04/30/17 17:30) Hives prochlorperazine edisylate [From Compazine] Allergy (Intermediate, Verified 17:30) hives, itching prochlorperazine maleate [From Compazine] Allergy (Intermediate, Verified 17:30) hives, itching corn Allergy (Mild, Verified 04/30/17 17:30) headache and migraine Milk Containing Products Allergy (Unknown, Verified 04/30/17 17:30) soy Allergy (Unknown, Verified 04/30/17 17:30) wheat Allergy (Unknown, Verified 04/30/17 17:30) Home Medications: Medication Instructions Recorded Gabapentin [Neurontin 300 MG (*)] 300 mg PO TID PRN 06/13/12 valACYclovir [Valtrex (*)] 1,000 mg PO DAILY 10/30/12 Doxycycline Hyclate [Vibramycin 100 mg PO DAILY 01/30/13 100 MG (*)] chlordiazePOXIDE [Librium 25 mg 25 mg PO QID PRN 01/30/13 (*)] Buprenorphine HCl/Naloxone HCl 1 each SL TID 09/06/14 [Suboxone 8 mg-2 mg SL Film] Erythromycin/Benzoyl Peroxide 1 brenda TP DAILY 02/13/15 [Benzamycin Gel] Multivitamins [Multivitamin (*)] 1 each PO DAILY 02/13/15 Valsartan/Hydrochlorothiazide 1 each PO DAILY 02/13/15 [Diovan Hct 160-25 mg Tablet] Pantoprazole Sodium [Protonix] 40 mg PO DAILY #30 tab 02/14/15 Promethazine HCl [Phenergan 25mg 25 mg PO Q6 PRN #10 tab 02/15/15 (*)] Cephalexin [Keflex (*)] 500 mg PO BID #8 cap 03/24/17 Budesonide [Pulmicort 0.5MG/2Ml 0.5 mg IH 05/03/17 Neb] Cefdinir [Omnicef (*)] 300 mg PO 05/03/17 Ferrous Sulfate [Ferrous Sulf 325 325 mg PO BID 05/03/17 MG (*)] Furosemide [Lasix 20 MG (*)] 20 mg PO 05/03/17 Potassium Chloride [Klor-Con] 20 meq PO DAILY 05/03/17 Ranitidine HCl [Zantac] 150 mg PO 05/03/17 Rivaroxaban [Xarelto 15mg (*)] 15 mg PO BID #42 tab 05/03/17 Tobramycin 0.3% [Tobrex 0.3% opht 1 drops OP Q4 05/03/17 drops (*)] Medical Decision Making - Diagnostics Imaging: Discussed imaging studies w/ house calls nurse Radiologist - Diagnostics Imaging Results: Imaging Impressions Chest/Thorax CTA 05/03/17 14:16 Impression: 1. Possible left subsegmental basilar pulmonary embolic disease. Consider correlation with nuclear medicine perfusion scan. 2. Slightly subtle early posterior segment right upper lobe pneumonia. Results called and discussed with LAURA NOLASCO, at 05/03/2017 15:15 General information for patients regarding this examination can be found at [email or web address]. If you have questions or comments about this report, please contact me at [phone] (hospital) or [phone] (cell). ED Course/Re-evaluation: This patient was turned over change of shift. She has 2 very small subsegmental pulmonary emboli. I confirmed the CT reading with Dr. Daquan Amor. There is no utility in doing a V/Q scan as recommended by Dr. Bella. There is also no utility in doing ultrasound of her calfs at this time. We will treat the patient with anticoagulation she will follow up with her primary care doctor. There is certainly choice to not treat these very small sub segmental pulmonary emboli but we will let the patient and her physician make that decision. (Tenzin Saravia) 38-year-old female presents to the emergency department initially feeling like she was having difficulty breathing. She felt like this was related to retained products. She did not feel that these symptoms were similar to her PE in the past in 2012. The patient was found to have a full bladder with over 600 mL of urine. She was able to urinate and repeat bladder scan reveals that her bladder was completely empty. Her urinalysis revealed no signs of infection. I do not see any evidence of kidney stone or kidney infection. Because of the patient's history of a P and because she feels pressure in her chest and difficulty breathing, a D-dimer was ordered. This was mildly elevated at 0.63. Patient had CT pulmonary angiogram which revealed 2 very small possible subsegmental pulmonary emboli in the left lung base. I spoke with Dr. Gutierrez who recommended consulting with methods time analyst on-call. I spoke with Dr. Chato Tejeda who reviewed the patient's CT scan. He recommended bilateral Doppler ultrasounds of lower extremity and if they were clear, he felt the patient could be discharged home. I explained these findings to Dr. Tenzin Saravia, secondary supervising physician, who did not directly evaluate the patient but feels strongly that if the radiologist feels that there is pulmonary emboli on CT scan that this should be treated. He consulted with Dr. Connor Cannon who felt that the patient did indeed have the 2 small sub segmental pulmonary emboli. There was also evidence of a very subtle small patch E possible early infiltrate in the right upper lobe of the lung. The patient has no cough. No reported fever. Clinically I do not think this patient has pneumonia. Initially the patient was going to be treated as an outpatient was a relative 15 mg twice daily for 21 days. She has a scheduled appointment with her primary care provider tomorrow already. I was unable to get a hold of her primary care provider. In the meantime the patient became very tearful and felt that she was not comfortable being discharged home. She states that she is still symptomatic and still feeling short of breath. I recommended admission to the hospital the patient will be admitted to the medical-surgical floor to Dr. Gutierrez. Patient was given Xarelto 15 mg p. o. in the emergency department as well as Phenergan 12.5 mg p.o. per her request. (Laura Nolasco) Differential Diagnosis: Shortness of breath including but not limited to pulmonary infectious process, COPD, asthma, pulmonary embolus and congestive heart failure. Chest pain including but not limited to myocardial ischemia, pulmonary embolus, chest wall pain, pleural inflammation and pulmonary infectious causes. (Laura Nolasco) - Data Points Laboratory Results: Laboratory Results 05/03/17 11:52 05/03/17 11:52 05/03/17 05/03/17 05/03/17 13:26 12:08 11:52 WBC RBC Hgb Hct MCV MCH MCHC RDW Plt Count MPV Neut % (Auto) Lymph % (Auto) Dickinson % (Auto) Eos % (Auto) Baso % (Auto) Nucleat RBC Rel Count Absolute Neuts (auto) Absolute Lymphs (auto) Absolute Monos (auto) Absolute Eos (auto) Absolute Basos (auto) Absolute Nucleated RBC Immature Gran % Immature Gran # D-Dimer 0.63 ug/mLFEU H ug/mLFEU (0.00-0.50) Sodium 136 mEq/L mEq/L (134-144) Potassium 3.8 mEq/L mEq/L (3.3-5.0) Chloride 102 mEq/L mEq/L (97-110) Carbon Dioxide 22 mEq/l mEq/l (22-31) Anion Gap 12 mEq/L mEq/L (8-16) BUN 20 mg/dL mg/dL (7-23) Creatinine 1.0 mg/dL mg/dL (0.6-1.0) Estimated GFR 59 Glucose 85 mg/dL mg/dL (70-100) Calcium 9.8 mg/dL mg/dL (8.5-10.4) Urine Color YELLOW Urine Appearance HAZY Urine pH 6.0 (5.0-7.5) Ur Specific [place] 1.004 (1.002-1.030) Urine Protein NEGATIVE (NEGATIVE) Urine Ketones NEGATIVE (NEGATIVE) Urine Blood NEGATIVE (NEGATIVE) Urine Nitrate NEGATIVE (NEGATIVE) Urine Bilirubin NEGATIVE (NEGATIVE) Urine Urobilinogen NEGATIVE EU EU (0.2-1.0) Ur Leukocyte Esterase NEGATIVE (NEGATIVE) Urine RBC 1-3 /hpf /hpf (0-3) Urine WBC Not Reported Ur Epithelial Cells TRACE /lpf /lpf (NONE-1+) Urine Glucose NEGATIVE (NEGATIVE) 05/03/17 11:52 WBC 5.48 10^3/uL 10^3/uL (3.80-9.50) RBC 3.28 10^6/uL L 10^6/uL (4.18-5.33) Hgb 11.4 g/dL L g/dL (12.6-16.3) Hct 32.6 % L % (38.0-47.0) MCV 99.4 fL fL (81.5-99.8) MCH 34.8 pg H pg (27.9-34.1) MCHC 35.0 g/dL g/dL (32.4-36.7) RDW 13.2 % % (11.5-15.2) Plt Count 232 10^3/uL 10^3/uL (150-400) MPV 10.1 fL fL (8.7-11.7) Neut % (Auto) 65.0 % % (39.3-74.2) Lymph % (Auto) 25.0 % % (15.0-45.0) Dickinson % (Auto) 5.8 % % (4.5-13.0) Eos % (Auto) 3.5 % % (0.6-7.6) Baso % (Auto) 0.5 % % (0.3-1.7) Nucleat RBC Rel Count 0.0 % % (0.0-0.2) Absolute Neuts (auto) 3.56 10^3/uL 10^3/uL (1.70-6.50) Absolute Lymphs (auto) 1.37 10^3/uL 10^3/uL (1.00-3.00) Absolute Monos (auto) 0.32 10^3/uL 10^3/uL (0.30-0.80) Absolute Eos (auto) 0.19 10^3/uL 10^3/uL (0.03-0.40) Absolute Basos (auto) 0.03 10^3/uL 10^3/uL (0.02-0.10) Absolute Nucleated RBC 0.00 10^3/uL 10^3/uL (0-0.01) Immature Gran % 0.2 % % (0.0-1.1) Immature Gran # 0.01 10^3/uL 10^3/uL (0.00-0.10) D-Dimer Sodium Potassium Chloride Carbon Dioxide Anion Gap BUN Creatinine Estimated GFR Glucose Calcium Urine Color Urine Appearance Urine pH Ur Specific [place] Urine Protein Urine Ketones Urine Blood Urine Nitrate Urine Bilirubin Urine Urobilinogen Ur Leukocyte Esterase Urine RBC Urine WBC Ur Epithelial Cells Urine Glucose Medications Given: Discontinued Medications Promethazine HCl (Phenergan) 12.5 mg PO ONCE ONE Stop: 05/03/17 15:59 Last Admin: 05/03/17 16:03 Dose: 12.5 mg Departure - Departure Disposition: [facility] Clinical Impression: Pulmonary embolism Condition: Good
[2017-05-03 11:59] LABS: % IMMATURE GRANULYOCYTES 0.2 % (0.0-1.1); ABSOLUTE IMMATURE GRANULOCYTES 0.01 10^3/uL (0.00-0.10); ADD DIFF? NO; ADD MORPH? NO; ADD SCAN? NO; ATYPICAL LYMPHOCYTE FLAG 0 (0-99); FRAGMENT RBC FLAG 0 (0-99); HEMATOCRIT 32.6 % (38.0-47.0); HEMOGLOBIN 11.4 g/dL (12.6-16.3); LEFT SHIFT FLG 0 (0-99); LIPEMIA HEMOLYSIS FLAG 90 (0-99); MEAN CELL HEMOGLOBIN 34.8 pg (27.9-34.1); MEAN CELL VOLUME 99.4 fL (81.5-99.8); MEAN PLATELET VOLUME 10.1 fL (8.7-11.7); PLATELET CLUMPS FLAG 0 (0-99); PLATELET COUNT 232 10^3/uL (150-400); RED BLOOD CELL COUNT 3.28 10^6/uL (4.18-5.33); RED CELL DISTRIBUTION WIDTH 13.2 % (11.5-15.2)
[2017-05-03 12:15] LABS: COLOR YELLOW; LEUKOCYTE ESTERASE,URINE NEGATIVE (NEGATIVE); NITRITE,URINE NEGATIVE (NEGATIVE)
[2017-05-03 12:19] LABS: ANION GAP 12 mEq/L (8-16); CALCIUM 9.8 mg/dL (8.5-10.4); CARBON DIOXIDE 22 mEq/l (22-31); CHLORIDE 102 mEq/L (97-110); GLOMERULAR FILTRATION RATE 59; GLUCOSE 85 mg/dL (70-100); SODIUM 136 mEq/L (134-144)
[2017-05-03 12:20] LABS: POTASSIUM 3.8 mEq/L (3.3-5.0)
[2017-05-03] MEDS ORDERED: IOPAMIDOL (ISOVUE 370) 100 ML BTL IV ONE (14:36)
--- NOTE | 2017-05-03 15:52 | CPEKG ---
Heart Rate: 88 RR Interval: 682 P-R Interval: 168 QRSD Interval: 86 QT Interval: 372 QTC Interval: 450 P [place]: 77 QRS [place]: 62 T Wave [place]: 12 EKG Severity - NORMAL ECG - EKG Impression: SINUS RHYTHM Electronically Signed By: Tenzin Saravia 03-May-2017 22:49:20
[2017-05-03] MEDS ORDERED: PROMETHAZINE HCL 25 MG TAB PO ONE (15:58)
[2017-05-03] MEDS ORDERED: RIVAROXABAN 15 MG TAB PO ONE (17:00)
[2017-05-03] MEDS ORDERED: GABAPENTIN 300 MG CAP PO PRN (20:27)
[2017-05-03] MEDS ORDERED: PROMETHAZINE HCL 25 MG TAB PO PRN (20:27)
[2017-05-03] MEDS ORDERED: BUDESONIDE 0.5 MG/2 ML AMPUL.NEB IH PRN (20:27)
[2017-05-03] MEDS ORDERED: FUROSEMIDE 20 MG TAB PO PRN (20:27)
[2017-05-03] MEDS ORDERED: LIDOCAINE 5% 1 EA PATCH TD PRN (20:27)
[2017-05-03] MEDS ORDERED: chlordiazePOXIDE 25 MG CAP PO PRN (20:27)
[2017-05-03] MEDS ORDERED: POTASSIUM CL 20 MEQ PKT PO PRN (20:27)
[2017-05-03] MEDS ORDERED: PATCH REMOVAL 1 EA PATCH TD PRN (20:36)
[2017-05-03] MEDS ORDERED: valACYclovir 500 MG TAB PO SCH (21:00)
[2017-05-03] MEDS ORDERED: VALSARTAN/HCTZ 80-12.5MG TAB PO SCH (21:00)
[2017-05-03] MEDS ORDERED: DOXYCYCLINE HYCLATE 100 MG CAP/TAB PO SCH (21:00)
[2017-05-03] MEDS: FAMOTIDINE 20 MG TAB PO SCH (21:27)
[2017-05-03] MEDS: FERROUS SULFATE 325 MG TAB PO SCH (21:28)
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
[2017-05-03 22:21] LABS: ALANINE AMINOTRANSFERASE 35 IU/L (9-52); ALBUMIN 4.2 g/dL (3.5-5.0); ALKALINE PHOSPHATASE 51 IU/L (38-126); ASPARTATE AMINOTRANSFERASE 29 IU/L (14-46); TOTAL PROTEIN 6.5 g/dL (6.3-8.2)
[2017-05-03 22:37] LABS: BILIRUBIN,TOTAL < 0.1 mg/dL (0.1-1.4); BILIRUBIN-CONJUGATED 0.1 mg/dL (0.0-0.5)
[2017-05-03 22:57] LABS: TROPONIN I < 0.012 ng/mL (0.000-0.034)
[2017-05-03] MEDS: PROMETHAZINE HCL 25 MG/ML INJ IVP PRN (23:16)
[2017-05-04] MEDS: PROMETHAZINE HCL 25 MG/ML INJ IVP PRN (05:21)
[2017-05-04] MEDS ORDERED: BENZOYL PEROXIDE TP SCH (09:00)
[2017-05-04] MEDS ORDERED: PANTOPRAZOLE SODIUM 40 MG TAB PO SCH (09:00)
[2017-05-04] MEDS ORDERED: FLUTICASONE NASAL 120 SPRAYS/16 GM MDI EACHNARE PRN (09:00)
[2017-05-04] MEDS ORDERED: ERYTHROMYCIN TP SCH (09:00)
[2017-05-04] MEDS ORDERED: APIXABAN 5 MG TAB PO SCH (09:00)
[2017-05-04] MEDS ORDERED: PROMETHAZINE HCL 25 MG/ML INJ IVP ONE (09:40)
[2017-05-04] MEDS ORDERED: FUROSEMIDE 20 MG/2 ML VIAL IVP ONE (09:40)
[2017-05-04] MEDS: FAMOTIDINE 20 MG TAB PO SCH (10:09)
[2017-05-04] MEDS: FERROUS SULFATE 325 MG TAB PO SCH (10:09)
[2017-05-04 12:22] VITALS: BP 111/79; PULSE 70; RESP 18; TEMP 97.8; O2SAT 97
--- NOTE | 2017-05-04 12:45 | ASDISCHSUM ---
Discharge Information Plan Status:Home with No Needs Medically Cleared to Leave:05/03/2017 Discharge Date:05/04/2017 12:32 PM CM D/C Disposition: ADT D/C Disposition:Home, Routine, Self-Care Projected Discharge Date:05/04/2017 12:00 AM Transportation at D/C: Discharge Delay Reason: Follow-Up Date:05/04/2017 12:00 AM Discharge Slot: Final Diagnosis: Placement Information Patient Contact Information Contact Name:YUSUF Relationship:Eden Address: Work Phone: City: [facility] Phone: State/Zip Code:[place] Email: Financial Information Financial Class: Primary Plan Desc:[employer]ICA[employer] FIRST [employer] Primary Plan Number:[id number] Secondary Plan Desc: Secondary Plan Number: Assessment Information Intervention Information
--- NOTE | 2017-05-05 02:03 | GDS ---
[f rep st] DISCHARGE SUMMARY DISCHARGE DIAGNOSES: 1. Acute subsegmental pulmonary embolism. 2. History of previous pulmonary embolism and deep vein thrombosis. 3. Chronic back pain. 4. Chronic continuous opioid dependency, on Suboxone. 5. Migraine headaches. 6. Hypertension. 7. Peptic ulcer disease. HISTORY OF PRESENT ILLNESS: A 46-year-old female with a history of prior PEs and DVTs, off anticou lation, who presents with complaints of chest pain, shortness of breath. For details of the patient' s initial presentation, please see the history and physical dated 05/03/2017. CONSULTATIVE SERVICES: None. PROCEDURES: On 05/03/2017, patient had a CTA of the chest, which confirmed subsegmental bilateral pu lmonary embolic disease. HOSPITAL COURSE BY ISSUE: Acute pulmonary emboli. Patient was initiated on Eliquis therapy, as with her recurrent history of embolic phenomena, re-initiation of anticoagulation seemed appropriate. Leonardo merchant was started on Eliquis 10 mg b.i.d. to then be followed 1 week later with 5 mg b.i.d. prescript ions, as well as Eliquis coupon cards were provided at the patient's disposition. She has been instr ucted to follow with her outpatient provider for ongoing management of her long-term anticoagulation. MEDICATIONS AT THE TIME OF DISPOSITION: Please reference the med rec printed on 05/04/2017. FOLLOWUP APPOINTMENTS: Include with Dr. Oviedo in the next week for her first post disposition foll owup. PENDING STUDIES: At the time of this dictation are none. /[id number]/MODL
== END 2017-05-04 12:32 | disposition home or self-care (01) ==
LOC: F3E 19:47
PROVIDERS: ADMIT Hospitalist; ATTEND Hospitalist
DX: I26.99 Other pulmonary embolism without acute cor pulmonale (principal); F11.20 Opioid dependence, uncomplicated; I10 Essential (primary) hypertension; G43.919 Migraine, unspecified, intractable, without status migrainosus; M54.6 Pain in thoracic spine
CPT/HCPCS: 71275; 93005; 93971; 99285; G0378; J0574; J1940; J2550; Q9967

== ENCOUNTER 2017-05-24 00:33 | Emergency (ER) | payer MEDICAID ==
[2017-05-24 00:37] VITALS: RESP 16
--- NOTE | 2017-05-24 01:02 | EDPHY ---
H & P Time Seen by Provider: 05/24/17 00:34 HPI/ROS: CHIEF COMPLAINT: Right calf cramp HISTORY OF PRESENT ILLNESS: 38-year-old female arrives by ambulance. Patient has a history of prior pulmonary emboli and DVTs, admitted to [facility] few weeks ago for acute subsegmental pulmonary embolus, started on Eliquis which he has been compliant with. She called 911 this evening because she had transient right calf cramp, now resolved. No discoloration. No chest pain. No dyspnea. No trauma. REVIEW OF SYSTEMS: A ten point review of systems was performed and is negative with the exception of the items mentioned in the HPI PAST MEDICAL & SURGICAL HISTORY: Recurrent pulmonary emboli, DVTs, currently on Eliquis therapy. SOCIAL HISTORY: Nonsmoker PHYSICAL EXAM (Prior to examination, patient consented to physical exam, hands were washed and my usual and customary physical exam procedures followed) 1) GENERAL: Well-developed, well-nourished, alert and oriented. Appears to be in no acute distress. Breathing comfortably speaking full sentences 2) HEAD: Normocephalic, atraumatic 3) HEENT: Pupils equal, round, reactive to light bilaterally. Sclera anicteric. 4) NECK: Full range of motion, no meningeal signs. 5) LUNGS: Clear auscultation bilaterally, no wheezes, no rhonchi, no retractions. 6) HEART: Regular rate and rhythm, no murmur, no heave, no gallop. 7) ABDOMEN: No guarding, no rebound, no focal tenderness, negative McBurney's, negative Martel's, negative Rovsing's, negative peritoneal sign, 8) MUSCULOSKELETAL: Right lower extremity: Normal coloration, no palpable cord , negative Homans, soft compartments, DP PT pulses present and brisk. No tenderness Moving all extremities, no focal areas of tenderness, no obvious trauma. No peripheral edema or discoloration. 9) BACK: No CVA tenderness, no midline vertebral tenderness, no fluctuance, no step-off, no obvious trauma, no visual or palpable abnormality. 10) SKIN: No rash, no petechiae. 11) Psychiatric: Patient is oriented X 3, there is no agitation. DIFFERENTIAL DIAGNOSIS: In no particular include but limited to compartment syndrome, DVT, arterial occlusion Smoking Status: Never smoked Constitutional: Initial Vital Signs Temperature (C) 37.0 C 05/24/17 00:33 Heart Rate 111 H 05/24/17 00:33 Respiratory Rate 16 05/24/17 00:33 Blood Pressure 148/98 H 05/24/17 00:33 O2 Sat (%) 99 05/24/17 00:33 O2 Delivery Mode Room Air Allergies/Adverse Reactions: baclofen [Baclofen] Allergy (Severe, Verified 04/30/17 17:30) Other-Enter Comments propofol [From Diprivan] Allergy (Severe, Verified 04/30/17 17:30) hives, itching, couldn't breath fluconazole [From Diflucan] Allergy (Intermediate, Verified 04/30/17 17:30) Other-Enter Comments ondansetron HCl [From Zofran (as hydrochloride)] Allergy (Intermediate, Verified 04/30/17 17:30) Hives prochlorperazine edisylate [From Compazine] Allergy (Intermediate, Verified 17:30) hives, itching prochlorperazine maleate [From Compazine] Allergy (Intermediate, Verified 17:30) hives, itching corn Allergy (Mild, Verified 04/30/17 17:30) headache and migraine Milk Containing Products Allergy (Unknown, Verified 04/30/17 17:30) soy Allergy (Unknown, Verified 04/30/17 17:30) wheat Allergy (Unknown, Verified 04/30/17 17:30) Home Medications: Medication Instructions Recorded Gabapentin [Neurontin 300 MG (*)] 300 mg PO TID PRN 06/13/12 valACYclovir [Valtrex (*)] 1,000 mg PO HS 10/30/12 Doxycycline Hyclate [Vibramycin 100 mg PO HS 01/30/13 100 MG (*)] chlordiazePOXIDE [Librium 25 mg 25 mg PO QID PRN 01/30/13 (*)] Buprenorphine HCl/Naloxone HCl 1 each SL TID 09/06/14 [Suboxone 8 mg-2 mg SL Film] Erythromycin/Benzoyl Peroxide 1 brenda TP DAILY 02/13/15 [Benzamycin Gel] Multivitamins [Multivitamin (*)] 1 each PO DAILY 02/13/15 Valsartan/Hydrochlorothiazide 1 each PO HS 02/13/15 [Diovan Hct 160-25 mg Tablet] Pantoprazole Sodium [Protonix 40mg 40 mg PO DAILY #30 tab 02/14/15 (*)] Budesonide [Pulmicort 0.5MG/2Ml 0.5 mg MISC BID PRN 05/03/17 Neb] Ferrous Sulfate [Ferrous Sulf 325 325 mg PO BID 05/03/17 MG (*)] Furosemide [Lasix 20 MG (*)] 20 mg PO 5XD PRN 05/03/17 Lidocaine 5% [Lidoderm 5% Patch 2 ea TD DAILY PRN 05/03/17 (*)] Potassium Chloride [Klor-Con] 20 meq PO DAILY PRN 05/03/17 Promethazine HCl [Phenergan 25mg 25 mg PO Q6 PRN 05/03/17 (*)] Ranitidine HCl [Zantac] 150 mg PO BID 05/03/17 Triamcinolone Acetonide [Nasacort] 1 spray EACHNARE DAILY PRN 05/03/17 Apixaban [Eliquis] 5 mg PO BID #60 tablet 05/04/17 Apixaban [Eliquis] 10 mg PO BID #14 tab 05/04/17 MDM/Departure - [facility] ED Course/Re-evaluation: 1:00 a.m.: Patient has already on Eliquis therapy. I do not think that ultrasound the right lower extremities currently indicated. She is neurovascular intact. I recommend she continue follow up with Dr. Kosta Oviedo her primary care provider, recommend she can remain compliant with her Eliquis. She has no signs of respiratory distress, not hypoxemic. She feels comfortable being discharged come feels comfortable with this discharge plan. Care of patient under supervision of secondary supervising physician Dr Rodriguez . - Depart Disposition: Home, Routine, Self-Care Clinical Impression: left calf cramp Condition: Good Instructions: Muscle Cramp (ED), Leg Cramps (ED) Referrals: Kosta Oviedo DO [Primary Care Provider] - 1-2 days without fail
[2017-05-24 01:08] VITALS: BP 107/81; PULSE 93; TEMP 98.2; O2SAT 96
== END 2017-05-24 01:07 | disposition home or self-care (01) ==
LOC: EDUNIT#
DX: R25.2 Cramp and spasm (principal)

== ENCOUNTER → 2017-05-28 | Outpatient (CLI) | payer MEDICAID | LOC: FIMAGING 10:35 | PROVIDERS: ATTEND Family Medicine | DX: M79.661 Pain in right lower leg (principal); Z86.711 Personal history of pulmonary embolism ==

== ENCOUNTER 2017-06-24 17:39 | Emergency (ER) | payer OTHER, MEDICAID ==
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
[2017-06-24 20:02] VITALS: BP 101/80; PULSE 88; RESP 16; TEMP 98.6; O2SAT 94
== END 2017-06-24 20:01 | disposition home or self-care (01) ==
DX: S09.90XA Unspecified injury of head, initial encounter (principal); S16.1XXA Strain of muscle, fascia and tendon at neck level, initial encounter; S80.02XA Contusion of left knee, initial encounter; I10 Essential (primary) hypertension; V49.40XA Driver injured in collision with unspecified motor vehicles in traffic accident, initial encounter; Y92.410 Unspecified street and highway as the place of occurrence of the external cause; Y99.8 Other external cause status; Y93.89 Activity, other specified

== ENCOUNTER 2018-03-09 17:55 | Emergency (ER) | payer MEDICAID ==
--- NOTE | 2018-03-09 18:06 | EDPHY ---
H & P Stated Complaint: LUE swelling Time Seen by Provider: 03/09/18 18:06 HPI/ROS: CHIEF COMPLAINT: Atraumatic left arm swelling HISTORY OF PRESENT ILLNESS: The patient presents to the ED with a several day history of atraumatic left arm swelling. The patient has a history of multiple PE and DVT. She is currently anticoagulated with Eliquis. She denies any history of fall or trauma. The patient denies any acute numbness or weakness. She denies any erythema, painful range of motion or fever. The patient has no complaints of chest pain or shortness of breath. The patient is followed by Dr. Montes De Oca at [facility] for her thromboembolic disease. REVIEW OF SYSTEMS: A comprehensive 10 point review of systems is otherwise negative aside from elements mentioned in the history of present illness. Source: Patient - Personal History LMP (Females 10-55): Now Current Tetanus/Diphtheria Vaccine: Yes Current Tetanus Diphtheria and Acellular Pertussis (TDAP): Yes Tetanus Vaccine Date: 11/2008 - Medical/Surgical History Hx Asthma: Yes Hx Chronic Respiratory Disease: No Hx Diabetes: No Hx Cardiac Disease: No Hx Renal Disease: No Hx Cirrhosis: No Hx Alcoholism: Yes Hx HIV/AIDS: No Hx Splenectomy or Spleen Trauma: No Other PMH: cholecystectomy, multiple back surgeries, P.E., knee repairs, DVT, EtOH abuse, endometreosis, tonsilectomy, HTN, kidney infections, hypokalemia, hyponatremia, STD. CHI, neurogenic bladder - Social History Smoking Status: Never smoked - Physical Exam Exam: General Appearance: Alert, no distress Eyes: Pupils equal and round no pallor or injection ENT, Mouth: Mucous membranes moist Respiratory: There are no retractions, lungs are clear to auscultation Cardiovascular: Regular rate and rhythm Gastrointestinal: Abdomen is soft and nontender, no masses, bowel sounds normal Neurological: A&O, normal motor function, normal sensory exam, normal cranial nerves Skin: Soft tissue swelling noted along the medial aspect of the left arm just proximal to the elbow. No significant erythema, fluctuance or warmth. Musculoskeletal: Normal range of motion noted at the left elbow and shoulder Extremities: symmetrical, full range of motion, 2+ radial and ulnar pulses noted bilaterally Constitutional: Initial Vital Signs Temperature (C) 37.1 C 03/09/18 18:02 Heart Rate 87 03/09/18 18:02 Respiratory Rate 16 09/26/18 18:02 Blood Pressure 146/92 H 03/09/18 18:02 O2 Sat (%) 96 03/09/18 18:02 O2 Delivery Mode Room Air Allergies/Adverse Reactions: baclofen [Baclofen] Allergy (Severe, Verified 03/09/18 18:00) Other-Enter Comments propofol [From Diprivan] Allergy (Severe, Verified 03/09/18 18:00) hives, itching, couldn't breath fluconazole [From Diflucan] Allergy (Intermediate, Verified 03/09/18 18:00) Other-Enter Comments ondansetron HCl [From Zofran (as hydrochloride)] Allergy (Intermediate, Verified 03/09/18 18:00) Hives prochlorperazine edisylate [From Compazine] Allergy (Intermediate, Verified 18:00) hives, itching prochlorperazine maleate [From Compazine] Allergy (Intermediate, Verified 18:00) hives, itching corn Allergy (Mild, Verified 03/09/18 18:00) headache and migraine Milk Containing Products Allergy (Unknown, Verified 03/09/18 18:00) soy Allergy (Unknown, Verified 03/09/18 18:00) wheat Allergy (Unknown, Verified 03/09/18 18:00) Home Medications: Medication Instructions Recorded Gabapentin [Neurontin 300 MG (*)] 300 mg PO TID PRN 06/13/12 valACYclovir [Valtrex (*)] 1,000 mg PO HS 10/30/12 Doxycycline Hyclate [Vibramycin 100 mg PO HS 01/30/13 100 MG (*)] chlordiazePOXIDE [Librium 25 mg 25 mg PO QID PRN 01/30/13 (*)] Buprenorphine HCl/Naloxone HCl 1 each SL TID 09/06/14 [Suboxone 8 mg-2 mg SL Film] Erythromycin/Benzoyl Peroxide 1 brenda TP DAILY 02/13/15 [Benzamycin Gel] Multivitamins [Multivitamin (*)] 1 each PO DAILY 02/13/15 Valsartan/Hydrochlorothiazide 1 each PO HS 02/13/15 [Diovan Hct 160-25 mg Tablet] Pantoprazole Sodium [Protonix 40mg 40 mg PO DAILY #30 tab 02/14/15 (*)] Budesonide [Pulmicort 0.5MG/2Ml 0.5 mg MISC BID PRN 05/03/17 Neb] Ferrous Sulfate [Ferrous Sulf 325 325 mg PO BID 05/03/17 MG (*)] Furosemide [Lasix 20 MG (*)] 20 mg PO 5XD PRN 05/03/17 Lidocaine 5% [Lidoderm 5% Patch] 2 ea TD DAILY PRN 05/03/17 Potassium Chloride [Klor-Con] 20 meq PO DAILY PRN 05/03/17 Promethazine HCl [Phenergan 25mg 25 mg PO Q6 PRN 05/03/17 (*)] Ranitidine HCl [Zantac] 150 mg PO BID 05/03/17 Triamcinolone Acetonide [Nasacort] 1 spray EACHNARE DAILY PRN 05/03/17 Apixaban [Eliquis] 5 mg PO BID #60 tablet 05/04/17 Apixaban [Eliquis] 10 mg PO BID #14 tab 05/04/17 Suboxone 12 mg-3 mg Sl Film 06/24/17 Ceftin (*) 03/09/18 Medical Decision Making - Diagnostics Imaging Results: Left upper extremity ultrasound: Images reviewed by myself and discussed with radiologist Dr. Donte Leach. Impression no DVT or significant fluid collection appreciated. ED Course/Re-evaluation: The patient presents to the ED for evaluation of some atraumatic swelling to the medial aspect of her left arm just proximal to her elbow joint. The patient has no clinical evidence of an infection. There is no erythema, warmth or limited range of motion. Patient was noted to have an intact arterial pulse throughout the extremity. The patient was taken for an upper extremity ultrasound which demonstrates no evidence of a DVT. The etiology of the small area of subcutaneous swelling is uncertain but at this point time I see nothing to suggest infection, clot or surgical emergency. I think it is prudent to have the patient observe her symptoms, to use a mild compression dressing and elevate the extremity at night. She has been told to return to the ED immediately for any increasing pain, fever , redness, limited range of motion or other concerns. Differential Diagnosis: Differential diagnosis considered includes DVT, cellulitis, abscess, edema, septic arthritis, arterial thrombosis Departure - Departure Disposition: Home, Routine, Self-Care Clinical Impression: Left arm swelling Condition: Good Instructions: Musculoskeletal Pain (ED) Additional Instructions: 1. Please try and elevate year extremity while sleeping at night. You may also use an Kirill wrap for the next 2 days. 2. Return to the ED immediately for any increasing pain, redness, fever, numbness, weakness or other concerns. 3. I do recommend a repeat ultrasound in 2 weeks for any ongoing symptoms to ensure that a clot has not developed. 4. Please follow-up with your primary care provider for any unimproved symptoms. Referrals: Kosta Oviedo DO [Primary Care Provider] - As per Instructions
[2018-03-09 19:03] VITALS: BP 120/86
== END 2018-03-09 19:03 | disposition home or self-care (01) ==
DX: M79.89 Other specified soft tissue disorders (principal); Z86.718 Personal history of other venous thrombosis and embolism; Z86.711 Personal history of pulmonary embolism; Z79.01 Long term (current) use of anticoagulants

== ENCOUNTER 2018-03-11 17:10 | Emergency (ER) | payer MEDICAID ==
--- NOTE | 2018-03-11 19:04 | EDPHY ---
H & P Time Seen by Provider: 03/11/18 18:44 HPI/ROS: Chief complaint. Left arm swelling, pain HPI. Patient is a 47-year-old female with history of multiple blood clots on Eliquis. She was seen in our emergency department 2 days ago for left arm swelling that was nontraumatic. Ultrasound revealed no evidence of DVT. The left arm has continued to hurt and is more swollen. She was seen today by her sort supervisor and had a D-dimer drawn which was elevated. They recommended she return to the emergency department for repeat ultrasound. Again is otherwise been no injury. She has no leg symptoms. And no chest discomfort or trouble breathing. ROS 10 systems were reviewed and negative with the exception of the elements mentioned in the history of present illness Past Medical/Surgical History: Past medical history is significant for cholecystectomy, back surgeries, thromboembolic disease, alcoholism, endometriosis, hypertension, pyelonephritis electrolyte abnormalities, closed-head injury Social History: , nonsmoker, no alcohol Smoking Status: Never smoked Physical Exam: General Appearance: Alert well-developed female mild distress vital signs are stable with initial heart rate 119 Eyes: Pupils equal and round no pallor or injection. ENT, Mouth: Mucous membranes are moist. Respiratory: There are no retractions, lungs are clear to auscultation. Cardiovascular: Regular rate and rhythm. Gastrointestinal: Abdomen is soft and nontender, no masses, bowel sounds normal. Neurological: Awake and alert, sensory and motor exams grossly normal. Skin: Warm and dry, no rashes. Musculoskeletal: Neck is supple nontender. Extremities left upper extremity has good range of motion. Pulses are normal. Mild swelling. Psychiatric: Patient is oriented X 3, there is no agitation. Constitutional: Initial Vital Signs Temperature (C) 36.7 C 03/11/18 17:14 Heart Rate 119 H 03/11/18 17:14 Respiratory Rate 16 03/11/18 17:14 Blood Pressure 119/77 03/11/18 17:14 O2 Sat (%) 97 03/11/18 17:14 O2 Delivery Mode Room Air Allergies/Adverse Reactions: baclofen [Baclofen] Allergy (Severe, Verified 03/09/18 18:00) Other-Enter Comments propofol [From Diprivan] Allergy (Severe, Verified 03/09/18 18:00) hives, itching, couldn't breath fluconazole [From Diflucan] Allergy (Intermediate, Verified 03/09/18 18:00) Other-Enter Comments ondansetron HCl [From Zofran (as hydrochloride)] Allergy (Intermediate, Verified 03/09/18 18:00) Hives prochlorperazine edisylate [From Compazine] Allergy (Intermediate, Verified 18:00) hives, itching prochlorperazine maleate [From Compazine] Allergy (Intermediate, Verified 18:00) hives, itching corn Allergy (Mild, Verified 03/09/18 18:00) headache and migraine Milk Containing Products Allergy (Unknown, Verified 03/09/18 18:00) soy Allergy (Unknown, Verified 03/09/18 18:00) wheat Allergy (Unknown, Verified 03/09/18 18:00) Home Medications: Medication Instructions Recorded Gabapentin [Neurontin 300 MG (*)] 300 mg PO TID PRN 06/13/12 valACYclovir [Valtrex (*)] 1,000 mg PO HS 10/30/12 Doxycycline Hyclate [Vibramycin 100 mg PO HS 01/30/13 100 MG (*)] chlordiazePOXIDE [Librium 25 mg 25 mg PO QID PRN 01/30/13 (*)] Buprenorphine HCl/Naloxone HCl 1 each SL TID 09/06/14 [Suboxone 8 mg-2 mg SL Film] Erythromycin/Benzoyl Peroxide 1 brenda TP DAILY 02/13/15 [Benzamycin Gel] Multivitamins [Multivitamin (*)] 1 each PO DAILY 02/13/15 Valsartan/Hydrochlorothiazide 1 each PO HS 02/13/15 [Diovan Hct 160-25 mg Tablet] Pantoprazole Sodium [Protonix 40mg 40 mg PO DAILY #30 tab 02/14/15 (*)] Budesonide [Pulmicort 0.5MG/2Ml 0.5 mg MISC BID PRN 05/03/17 Neb] Ferrous Sulfate [Ferrous Sulf 325 325 mg PO BID 05/03/17 MG (*)] Furosemide [Lasix 20 MG (*)] 20 mg PO 5XD PRN 05/03/17 Lidocaine 5% [Lidoderm 5% Patch] 2 ea TD DAILY PRN 05/03/17 Potassium Chloride [Klor-Con] 20 meq PO DAILY PRN 05/03/17 Promethazine HCl [Phenergan 25mg 25 mg PO Q6 PRN 05/03/17 (*)] Ranitidine HCl [Zantac] 150 mg PO BID 05/03/17 Triamcinolone Acetonide [Nasacort] 1 spray EACHNARE DAILY PRN 05/03/17 Apixaban [Eliquis] 5 mg PO BID #60 tablet 05/04/17 Apixaban [Eliquis] 10 mg PO BID #14 tab 05/04/17 Suboxone 12 mg-3 mg Sl Film 06/24/17 Ceftin (*) 03/09/18 Medical Decision Making - Diagnostics Imaging Results: Imaging Impressions Extremity Venous Study 03/11/18 19:01 Impression: No evidence of deep vein thrombosis. These findings were discussed with Dr. Short by telephone at 8:15 PM on 2017. Ultrasound left upper extremity reviewed by me and discussed with Radiology is normal. No evidence for DVT ED Course/Re-evaluation: Re-evaluation 8:20 p.m.. Patient and I discussed imaging study results, treatment plan including criteria for return and importance of follow-up and further evaluation. She expresses understanding and agreement Differential Diagnosis: Patient has a history of thromboembolic disease. She had an elevated D-dimer at the office today. She has no leg symptoms and no chest symptoms butter complaint is swollen left arm. She is on Eliquis which would make DVT and PE less likely. This swelling in her left arm is fairly mild this is possible that it is lymphedema. There has been no trauma or injury to suggest fracture dislocation Departure - Departure Disposition: Home, Routine, Self-Care Clinical Impression: Left arm swelling Condition: Good Instructions: Arm Pain (ED) Additional Instructions: Continue to take your Eliquis as prescribed. Return for worsening symptoms. Re-evaluation for continued arm swelling in the next 2-3 days Referrals: Yolanda Reaves PA [Primary Care Provider] - 2-3 days, if not improved
[2018-03-11 20:39] VITALS: BP 117/83
== END 2018-03-11 20:38 | disposition home or self-care (01) ==
DX: M79.89 Other specified soft tissue disorders (principal); M79.622 Pain in left upper arm; Z79.01 Long term (current) use of anticoagulants; Z86.718 Personal history of other venous thrombosis and embolism

== ENCOUNTER 2018-03-14 16:46 | Emergency (ER) | payer MEDICAID ==
[2018-03-14] MEDS ORDERED: ASPIRIN 81 MG CHEWABLE TAB PO ONE (16:48)
[2018-03-14] MEDS ORDERED: NS 500 ML IV ONE (16:48)
--- NOTE | 2018-03-14 17:20 | EDPHY ---
H & P Time Seen by Provider: 03/14/18 16:50 HPI/ROS: HPI History of blood clots, continued left arm pain and chest pain today. 47-year-old female with a prior history of DVTs. She is currently on Eliquis. She presents to the emergency department for the 3rd time in the last 7 days with complaint of continued left upper extremity swelling and discomfort. She was seen at the office of her furnace liner, Dr. Montes De Oca, by an psychiatric technician assistant and reports that she was told to come to the emergency department for further evaluation. She was seen as well in our emergency department for this complaint specifically on March 09 as well as again on March 11. She had Doppler ultrasounds of her left upper extremity at that time which showed no evidence of clot. She returns to the emergency department today complaining of continued left arm pain and swelling which she states has not changed but has persisted and radiates up into her left neck and left jaw as it has over the last week. She also complains of intermittent chest discomfort which she describes as tightness mid upper chest for the last 6-8 hours. She does not feel short of breath. And denies any chest pain currently. ROS: Constitutional: No fever, no chills. No weakness. Eyes: No discharge. No changes in vision. ENT: No sore throat. No nasal congestion or rhinorrhea. Respiratory: No cough. No shortness of breath. Cardiac: As above, no palpitations. Gastrointestinal: No abdominal pain, no vomiting, no diarrhea. Genitourinary: No hematuria. No dysuria or increased frequency with urination. Musculoskeletal: No back pain. No neck pain. As above. Skin: No rashes. Neurological: No headache. No focal weakness or altered sensation. Past medical history: Thromboembolic disease currently on Eliquis, alcoholism, endometriosis, hypertension, pyelonephritis, electrolyte abnormalities, cholecystectomy, back surgeries, chronic pain and she is documented as a narcotic caution at our hospital. Social history: Nonsmoker. . Here by herself. As above. Physical Exam: General Appearance: Alert, she is not in distress. She does not appear toxic. This patient is responding to questions appropriately and in full sentences. This patient appears well-hydrated and well-nourished. Eyes: Pupils equal and round no pallor or injection. No lid edema, erythema or injection. Respiratory: There are no retractions, lungs are clear to auscultation with good air movement bilaterally. Cardiovascular: Regular rate and rhythm. No murmur. Gastrointestinal: Abdomen is soft and nontender, no masses, bowel sounds normal. No focal tenderness at McBurney's point. No Martel sign. Neurological: Motor sensory function is grossly intact. Cranial nerves are normal. Gait is normal. Skin: Warm and dry, no rashes. Musculoskeletal: Neck is supple and nontender. She has a subtle and vague asymmetric swelling diffusely of the left upper extremity compared to the right upper extremity. Her muscle compartments are all soft. She also has what appears to be a faint cyanosis in the distal aspect of her volar palm and volar digits on the left side. However, capillary refill in her fingers distally is normal. She has palpable ulnar and radial pulses distally in the left upper extremity as well. Sensation and motor function are intact in the left hand and left upper extremity. All joints range without pain or impingement. Psychiatric: No agitation. No depression. Database: EKG: EKG time is 4:57 p.m.; EKG shows a narrow complex normal sinus rhythm with a ventricular rate of 94. Probable left atrial enlargement. The IN, QRS, QT intervals are within normal limits. There are no ST-T wave changes indicative of ischemic or injury pattern. No evidence of right heart strain. Interpreted by me. Imaging: Chest x-ray AP portable; the cardiac mediastinal silhouette is unremarkable. Poor inhalation effort. No evidence of infiltrate or pneumothorax. No acute cardiopulmonary disease process noted. Interpreted by me. Left upper extremity Doppler ultrasound: Negative for DVT. Normal study. Results were discussed with staff radiologist Dr. Sharad Maguire. Procedures: Emergency department course: Triage vital signs reviewed. She is moderately hypertensive. Vital signs are otherwise normal. IV was placed. She was placed on a order takers supervisor. EKG obtained and reviewed by myself. We will also obtain another ultrasound of her left upper extremity to evaluate for DVTs. Heart score is 2. Nursing staff was unable to obtain a peripheral IV. An external jugular vein peripheral IV was attempted x2 without success. The patient stated she has a history of being a very difficult IV placement. A temporary right internal jugular vein IV was placed under ultrasound guidance and sterile preparation. Blood was obtained for a troponin and basic metabolic panel. However this line either clotted or was dislodged and was nonfunctional after blood was obtained. The patient tolerated this procedure well and there were no complications. 7:00 p.m., the patient was re-evaluated. She denies any chest pain or shortness of breath at this time. Right upper extremity is neurovascularly intact. I do not appreciate any cyanosis. She has normal capillary refill in all digits. She has strong pulses distally. I discussed results of her emergency department workup. I explained my concern that she has come to the emergency department 3 times and that we are not able to give her a clear reason why she is having this swelling in her left upper extremity. I also discussed my concern about her chest discomfort earlier in the day. I feel that a pulmonary embolism and acute coronary syndrome is unlikely. She is on Eliquis. She has no shortness of breath and no pain discomfort in her chest while she has been in the emergency department. I discussed admission with her for observation overnight and evaluation by our hospitalist service. At this time she does not want to be admitted. In my professional opinion she understands the risks of declining admission which were thoroughly discussed with her. She demonstrates capacitance to make decisions on her behalf. She will follow up with her furnace liner tomorrow. I stressed the importance of this. She tells me she has blood work results pending through her furnace liner. Return to emergency department precautions were thoroughly reviewed with her. All of her questions were answered. She was discharged from the emergency department in good condition. Differential Diagnosis: The differential diagnosis on this patient includes but is not limited to vascular insufficiency of the left upper extremity. Left upper extremity DVT, pulmonary embolism, acute coronary syndrome, left upper extremity arterial thrombosis, cervical radiculopathy unlikely. This represents a partial list of diagnoses considered. These considerations are based on history, physical exam , past history, reassessment and diagnostic testing. Smoking Status: Never smoked Constitutional: Initial Vital Signs Temperature (C) 36.7 C 03/14/18 16:54 Heart Rate 94 03/14/18 16:54 Respiratory Rate 20 03/14/18 16:54 Blood Pressure 141/89 H 03/14/18 16:54 O2 Sat (%) 98 03/14/18 16:54 O2 Delivery Mode Room Air Allergies/Adverse Reactions: baclofen [Baclofen] Allergy (Severe, Verified 03/14/18 17:01) Other-Enter Comments propofol [From Diprivan] Allergy (Severe, Verified 03/14/18 17:) hives, itching, couldn't breath fluconazole [From Diflucan] Allergy (Intermediate, Verified 03/14/18 17:) Other-Enter Comments ondansetron HCl [From Zofran (as hydrochloride)] Allergy (Intermediate, Verified 03/14/18 17:) Hives prochlorperazine edisylate [From Compazine] Allergy (Intermediate, Verified 07/01 17:) hives, itching prochlorperazine maleate [From Compazine] Allergy (Intermediate, Verified 17:) hives, itching corn Allergy (Mild, Verified 03/14/18 17:) headache and migraine Milk Containing Products Allergy (Unknown, Verified 03/14/18 17:) soy Allergy (Unknown, Verified 03/14/18 17:) wheat Allergy (Unknown, Verified 03/14/18 17:) Home Medications: Medication Instructions Recorded Gabapentin [Neurontin 300 MG (*)] 300 mg PO TID PRN 06/13/12 valACYclovir [Valtrex (*)] 1,000 mg PO HS 10/30/12 Doxycycline Hyclate [Vibramycin 100 mg PO HS 01/30/13 100 MG (*)] chlordiazePOXIDE [Librium 25 mg 25 mg PO QID PRN 01/30/13 (*)] Buprenorphine HCl/Naloxone HCl 1 each SL TID 09/06/14 [Suboxone 8 mg-2 mg SL Film] Erythromycin/Benzoyl Peroxide 1 brenda TP DAILY 02/13/15 [Benzamycin Gel] Multivitamins [Multivitamin (*)] 1 each PO DAILY 02/13/15 Valsartan/Hydrochlorothiazide 1 each PO HS 02/13/15 [Diovan Hct 160-25 mg Tablet] Pantoprazole Sodium [Protonix 40mg 40 mg PO DAILY #30 tab 02/14/15 (*)] Budesonide [Pulmicort 0.5MG/2Ml 0.5 mg MISC BID PRN 05/03/17 Neb] Ferrous Sulfate [Ferrous Sulf 325 325 mg PO BID 05/03/17 MG (*)] Furosemide [Lasix 20 MG (*)] 20 mg PO 5XD PRN 05/03/17 Lidocaine 5% [Lidoderm 5% Patch] 2 ea TD DAILY PRN 05/03/17 Potassium Chloride [Klor-Con] 20 meq PO DAILY PRN 05/03/17 Promethazine HCl [Phenergan 25mg 25 mg PO Q6 PRN 05/03/17 (*)] Ranitidine HCl [Zantac] 150 mg PO BID 05/03/17 Triamcinolone Acetonide [Nasacort] 1 spray EACHNARE DAILY PRN 05/03/17 Apixaban [Eliquis] 5 mg PO BID #60 tablet 05/04/17 Apixaban [Eliquis] 10 mg PO BID #14 tab 05/04/17 Suboxone 12 mg-3 mg Sl Film 06/24/17 Ceftin (*) 03/09/18 Medical Decision Making - Diagnostics Imaging Results: Imaging Impressions Chest X-Ray 03/14/18 16:49 Impression: Hypoventilatory chest with mild basilar atelectasis Extremity Venous Study 03/14/18 17:11 Impression: No deep venous thrombosis left arm. Findings and recommendations discussed with Emergency Department physician, Bryanna Joel MD at 18:02 hour, 03/14/2018. Final report concurs with initial preliminary interpretation. - Data Points Laboratory Results: 03/14/18 03/14/18 18:33 18:30 POC Sodium 138 mEq/L mEq/L (135-145) POC Potassium 3.3 mEq/L mEq/L (3.3-5.0) POC Chloride 104.0 mEq/L mEq/L (97-110) POC Total CO2 25 mEq/L mEq/L (22-31) POC BUN 15 mg/dL mg/dL (7-23) POC Creatinine 1.1 mg/dL H mg/dL (0.6-1.0) POC Glucose 92 mg/dL mg/dL (70-100) POC Calcium 9.0 mg/dL mg/dL (8.5-10.4) POC Troponin I 0.01 ng/mL ng/mL (0.00-0.08) Medications Given: Discontinued Medications Aspirin (Aspirin) 324 mg PO EDNOW ONE Stop: 03/14/18 16:49 Last Admin: 03/14/18 17:22 Dose: 324 mg Sodium Chloride (Ns) 500 mls @ 1,000 mls/hr IV EDNOW ONE PRN Reason: Protocol Stop: 03/14/18 17:17 Last Admin: 03/14/18 18:56 Dose: Not Given Point of Care Test Results: Chemistry 03/14/18 03/14/18 18:33 18:30 POC Sodium 138 mEq/L mEq/L (135-145) POC Potassium 3.3 mEq/L mEq/L (3.3-5.0) POC Chloride 104.0 mEq/L mEq/L (97-110) POC Total CO2 25 mEq/L mEq/L (22-31) POC BUN 15 mg/dL mg/dL (7-23) POC Creatinine 1.1 mg/dL H mg/dL (0.6-1.0) POC Glucose 92 mg/dL mg/dL (70-100) POC Calcium 9.0 mg/dL mg/dL (8.5-10.4) POC Troponin I 0.01 ng/mL ng/mL (0.00-0.08) Departure - Departure Disposition: Home, Routine, Self-Care Clinical Impression: Left arm swelling, Chest discomfort Condition: Good Instructions: Chest Pain (ED) Additional Instructions: Read and follow provided instructions. Follow-up with your furnace liner as discussed tomorrow without fail for re- evaluation. It is very important you do this. Continue taking your medications as prescribed. Return to the emergency department immediately for worsening symptoms, return of chest pain, shortness of breath, worsening swelling in your left arm, loss of sensation, pain or discoloration in your left arm or hand or other serious concerns. Referrals: Dino Montes De Oca MD [Medical Doctor] - As per Instructions
[2018-03-14 19:31] VITALS: BP 114/82
--- NOTE | 2018-03-14 22:16 | CPEKG ---
Test Reason : OPEN Blood Pressure : / mmHG Vent. Rate : 094 BPM Atrial Rate : 094 BPM P-R Int : 193 ms QRS Dur : 082 ms QT Int : 368 ms P-R-T Axes : 076 056 028 degrees QTc Int : 461 ms Sinus rhythm Left atrial enlargement Confirmed by Bryanna Joel ([id number] on 03/14/2018 10:16:27 PM Referred By: Confirmed By:Bryanna Joel
== END 2018-03-14 19:20 | disposition home or self-care (01) ==
LOC: CED 16:46
DX: R07.9 Chest pain, unspecified (principal); M79.602 Pain in left arm; I10 Essential (primary) hypertension; Z86.711 Personal history of pulmonary embolism; Z79.01 Long term (current) use of anticoagulants
CPT/HCPCS: 71045-PO; 80048-PO; 84484-PO; 93971-PO

== ENCOUNTER → 2018-04-21 | Outpatient (CLI) | payer MEDICAID | LOC: FIMAGING 09:50 | PROVIDERS: ATTEND Internal Medicine Hematology & Oncology | DX: M79.602 Pain in left arm (principal) ==

== ENCOUNTER → 2018-05-19 | Outpatient (CLI) | payer MEDICAID | LOC: FIMAGING 08:26 | PROVIDERS: ATTEND Family Medicine | DX: K21.9 Gastro-esophageal reflux disease without esophagitis (principal) ==

== ENCOUNTER → 2018-08-28 | Outpatient (CLI) | payer MEDICAID | LOC: FIMAGING 12:20 | PROVIDERS: ATTEND Family Medicine | DX: S09.90XA Unspecified injury of head, initial encounter (principal); W00.0XXA Fall on same level due to ice and snow, initial encounter ==

== ENCOUNTER → 2018-09-12 | Outpatient (CLI) | payer MEDICAID | LOC: FIMAGING 12:13 | PROVIDERS: ATTEND Family Medicine | DX: R06.02 Shortness of breath (principal); R60.1 Generalized edema; R63.5 Abnormal weight gain ==

== ENCOUNTER 2018-11-14 15:00 | Emergency (ER) | payer MEDICAID | END 2018-11-14 17:18 | disposition home or self-care (01) ==